=== PATIENT | female | born 1965 | race Caucasian/White ===

== ENCOUNTER 2022-05-15 17:53 | Inpatient (IN) | payer MEDICARE, MEDICAID, SELFPAY ==
--- NOTE | ~2022-05-15 | XR_ITS ---
EXAMINATION: XR LUMBOSACRAL SPINE CLINICAL INFORMATION: Inability to walk. Pain. COMPARISON: None TECHNIQUE: Three views of the lumbosacral spine. FINDINGS: There may be curvature of the lower lumbar sacral spine to the right. Bone alignment is otherwise normal. No fracture or dislocation is seen. There is evidence of multilevel degenerative spondylosis. There is mild degenerative disc disease at L3-L4. There is lower lumbar spine facet arthritis. XR/XR lumbar spine 2-3V IMPRESSION: Multilevel degenerative changes.
[2022-05-15] MEDS: Acetaminophen 325 MG TABLET 650 MG PO (20:11)
[2022-05-15] MEDS: traZODone HCL 50 MG TABLET PO (20:11)
[2022-05-15 22:16] LABS: Glucose, Whole Blood 234 mg/dL (60-115)
--- NOTE | 2022-05-15 23:05 | PC.ADMIT ---
Pt is a 57y/o woman admitted on CV from [facility] for attempted Suicide. Pt reports that she took 6 tabs each of Tylenol, Benadryl, and Dramamine. Pt reports her OD was intentional due to a buildup of life stresses. Pt is alert and oriented, VSS, Covid negative, Tox screen negative. Pt reports multiple chronic conditions that are causing her increasing pain and decreasing mobility. Pt reports that she wants to get some good coping skills and also get help in managing her pain. Currently pt is using a cane, new order for in-house walker given by Christal Davey. Pt presents with limited mobility. Pt observed to be tearful at times during assessment. Speech is normal with regular tone, rate and rhythm. Admission orders obtained.
[2022-05-16] MEDS: Acetaminophen 325 MG TABLET 650 MG PO ×3 (04:51→19:58)
[2022-05-16 07:41] LABS: Estimated Average Glucose 298 mg/dL
[2022-05-16 07:47] LABS: Alanine Aminotransferase 28 U/L (0-31); Albumin Level 3.8 g/dL (3.5-5.0); Alkaline Phosphatase 75 U/L (39-117); Anion Gap 18 (12-20); Aspartate Amino Transferase 52 U/L (5-31); Bilirubin Total 0.6 mg/dL (0.0-1.0); Blood Urea Nitrogen 37 mg/dL (9-16); Calcium 9.3 mg/dL (8.4-10.2); Carbon Dioxide 21 mmol/L (22-29); Chloride 101 mmol/L (96-108); Cholesterol 236 mg/dL; Estimated Glomerular Filt Rate 52; Glucose Fasting 270 mg/dL (60-99); HDL Cholesterol 32 mg/dL; LDL Cholesterol Calculated 151 mg/dl; Magnesium 2.3 mg/dL (1.6-2.6); Sodium 136 mmol/L (135-145); Total Protein 7.8 g/dL (6.5-8.0); Triglycerides 266 mg/dL
[2022-05-16 08:09] LABS: Free T4 (Free Thyroxine) 1.06 ng/dL (0.71-1.85); Thyroid Stimulating Hormone 0.84 uIU/mL (0.32-4.0)
[2022-05-16 09:37] LABS: Folate 8.2 ng/mL (> or = 4.0); Vitamin B12 528 pg/mL (200-900)
[2022-05-16 12:32] VITALS: BP 126/87; PULSE 89; TEMP 36.4; O2SAT 98
[2022-05-16] MEDS: clonazePAM 0.5 MG TABLET PO (14:56)
[2022-05-16] MEDS: Ibuprofen 400 MG TABLET PO ×2 (14:56→19:59)
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
[2022-05-16 18:00] VITALS: BP 130/83; PULSE 95; TEMP 36.6; O2SAT 93
[2022-05-17 06:00] VITALS: BP 148/80; PULSE 89; RESP 18; TEMP 36.2; O2SAT 98
[2022-05-17] MEDS: Escitalopram Oxalate 10 MG TABLET PO (10:09)
[2022-05-17] MEDS: Mineral Oil/Petrolatum,White 106 GM Tube 1 APPL TOPICAL ×2 (10:09→14:01)
[2022-05-17] MEDS: Multivitamin TABLET 1 TAB PO (10:10)
[2022-05-17] MEDS: Ibuprofen 400 MG TABLET PO ×2 (10:52→16:54)
[2022-05-17] MEDS: Acetaminophen 325 MG TABLET 650 MG PO (13:59)
[2022-05-17] MEDS: clonazePAM 0.5 MG TABLET PO (13:59)
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
--- NOTE | 2022-05-17 16:05 | HO.PSYCHPN ---
Subjective Subjective Date of Service: 05/17/22 Reason For Visit: anxiety disorder, recurrent episode, hoarding diso Subjective Notes: Conditional Voluntary Healthcare Proxy: No Guardianship: No Medical Problems Affecting Mental Status: Yes Interim History: Continues to settle with initial eval of multiple medical/psych issues. Reporting pain- Team discussed Gabapentin trial-discussed with pt who is wiling to do a full trial. Beginning to integrate in milieu. Mobility an issue. Room-mate is attentive to pt and she verbalized appreciation. Overall reports feeling better- I am heard here Medication Compliance: Yes Side effects from medications: No Attending Groups: Intermittent Review of Systems Acute medical concerns: No Medical Review of Systems: unchanged Mental Status Exam Mental Status Exam Patient Appearance: Fatigued Patient Orientation: Person, Place, Time and Situation Level of Consciousness: Alert Patient Behavior: Appropriate, Talkative, Cooperative, Anxious, Fatigued, Isolative and Good Eye Contact Mood Description: Depressed and Anxious Affect Description: Flat Patient Cognition Impaired: No Ability to Follow Directions: Good Speech Pattern: Spontaneous Speech Memory Description: Intact and Episodic Impaired Hallucinations: None Delusions: Not Present Perceptual Disturbances: Depersonalization and Derealization Thought Process: Intact, Rumination and Goal Oriented Thought Content: positive for Intact, positive for [place], positive for Perseveration and positive for Suicidal Ideation Depressive Symptoms: Increased Anxiety, Insomnia, Diff. Making Decisions, Muscle Tension, Difficulty Sleeping, Changes in Appetite, Muscle Pain, Loss of Int. in Activity, Feelings of Worthlessness, Significant Weight Gain, Isolating-Friends/Family, Unhappiness, Increased Fatigue, Thoughts of /Suicide, Unexplained Stomach Pain, Low Self Esteem, Loss of Energy, Difficulty Concentrating and Back Pain Judgement: Good Diagnostics Vital Signs (24Hr): Vital Signs - 24 hr 05/16/22 18:00 05/17/22 06:00 Temperature 98 F 97.2 F Pulse Rate 95 89 Respiratory Rate 18 Blood Pressure 130/83 148/80 H Pulse Oximetry 93 98 Oxygen Delivery Method Room Air Room Air Labs Results: 05/16/22 07:13 Labs: Laboratory Results - last 48 hr 05/15/22 05/16/22 05/16/22 22:12 07:13 07:13 Sodium 136 Potassium 4.0 Chloride 101 Carbon Dioxide 21 L Anion Gap 18 BUN 37 H Creatinine 1.09 Estim Creat Clear Calc TNP Estimated GFR 52 POC Glucose 234 H Fasting Glucose 270 H Estimat Average Glucose 298 Hemoglobin A1c % 12.0 Calcium 9.3 Magnesium 2.3 Total Bilirubin 0.6 AST 52 H ALT 28 Alkaline Phosphatase 75 Total Protein 7.8 Albumin 3.8 Triglycerides 266 Cholesterol 236 LDL Cholesterol, Calc 151 HDL Cholesterol 32 Vitamin B12 Folate TSH 0.84 Free T4 1.06 05/16/22 05/16/22 05/17/22 07:13 17:22 11:33 Sodium Potassium Chloride Carbon Dioxide Anion Gap BUN Creatinine Estim Creat Clear Calc Estimated GFR POC Glucose 254 H 340 H Fasting Glucose Estimat Average Glucose Hemoglobin A1c % Calcium Magnesium Total Bilirubin AST ALT Alkaline Phosphatase Total Protein Albumin Triglycerides Cholesterol LDL Cholesterol, Calc HDL Cholesterol Vitamin B12 528 Folate 8.2 TSH Free T4 Medications Medications Current Medications Acetaminophen (Acetaminophen 325 Mg Tablet) 650 mg PO Q6H PRN PRN Reason: Headache/Pain Mild Scale (1-3) Last Admin: 05/17/22 13:59 Dose: 650 mg Al Hydroxide/Mg Hydroxide (Magnesium Hydrox/Alum Hydrox 30 Ml Oral.Susp) 30 ml PO Q6H PRN PRN Reason: Heartburn/Nausea Clonazepam (Clonazepam 0.5 Mg Tablet) 0.5 mg PO BID PRN PRN Reason: Anxiety Last Admin: 05/17/22 13:59 Dose: 0.5 mg Dextrose (Dextrose 50 % 25 Gm/50 Ml Syringe) 25 gm IVPUSH Q15M PRN; Protocol PRN Reason: per Hypoglycemia Standing Ord. Escitalopram Oxalate (Escitalopram Oxalate 10 Mg Tablet) 10 mg PO DAILY [facility] Last Admin: 05/17/22 10:09 Dose: 10 mg Gabapentin (Gabapentin 100 Mg Capsule) 100 mg PO TID [facility] Glucose (Glucose Gel 15 Gm Gel..Gram.) 15 gm PO Q15M PRN; Protocol PRN Reason: per Hypoglycemia Standing Ord. Glyburide (Glyburide 2.5 Mg Tablet) 2.5 mg PO DAILY [facility] Hydroxyzine HCl (Hydroxyzine Hcl 25 Mg Tablet) 25 mg PO Q6H PRN PRN Reason: Anxiety Ibuprofen (Ibuprofen 400 Mg Tablet) 400 mg PO Q6H PRN PRN Reason: Pain, Mild (Pain Scale 1-3) Last Admin: 05/17/22 10:52 Dose: 400 mg Insulin Human Lispro (Insulin Lispro 100 Unit/Ml 3 Ml Vial) 0 unit SUBCUT QIDACHS [facility]; Protocol Stop: 05/18/22 13:53 Magnesium Hydroxide (Milk Of Magnesia 30 Ml Oral.Susp) 30 ml PO DAILY PRN PRN Reason: Constipation Multi-Ingred Cream/Lotion/Oil/Oint (Mineral Oil/Petrolatum,White 106 Gm Tube) 1 appl TOPICAL TID [facility]; Protocol Last Admin: 05/17/22 14:01 Dose: 1 appl Multivitamins/Vitamin C (Multivitamin Tablet) 1 tab PO DAILY [facility] Last Admin: 05/17/22 10:10 Dose: 1 tab Trazodone HCl (Trazodone Hcl 50 Mg Tablet) 50 mg PO BEDTIME PRN PRN Reason: Insomnia Last Admin: 05/15/22 20:11 Dose: 50 mg Allergies Allergies Allergy/AdvReac Type Severity Reaction Status Date / Time spironolactone Allergy Unknown Unknown Verified 05/15/22 18:06 bees Allergy Unknown Unknown Uncoded 05/15/22 18:06 metformin Allergy Unknown Unknown Uncoded 05/15/22 18:06 shellfish Allergy Unknown Unknown Uncoded 05/15/22 18:06 Assessment & Plan Assessment & Plan (1) PTSD (post-traumatic stress disorder): Status: Acute Code(s): F43.10 - Post-traumatic stress disorder, unspecified (2) Recurrent major depression: Status: Acute Code(s): F33.9 - Major depressive disorder, recurrent, unspecified Plan 05/17/22-Gabapentin trial. Continue current regime I spent minutes with the patient and/or on the patient floor today, greater than?50% of which was spent counseling/coordinating care. Patient educated on: medication risk/benefits and therapeutic strategies Informed Consent: understands and further education needed Reason for contiued inpatient stay Substantial Risk for: med/psych decompensation
[2022-05-17] MEDS: glyBURIDE 2.5 MG TABLET PO (16:54)
[2022-05-17] MEDS: Loperamide HCl 2 MG CAPSULE 4 MG PO (16:58)
[2022-05-17] MEDS: Insulin Lispro 100 UNIT/ML 3 ML VIAL SUBCUT ×2 (17:56→21:27)
[2022-05-17 18:00] VITALS: BP 180/88; PULSE 74; RESP 18; TEMP 36.8; O2SAT 96
[2022-05-17] MEDS: Gabapentin 100 MG CAPSULE PO (21:24)
[2022-05-18 06:00] VITALS: BP 180/103; PULSE 89; RESP 18; TEMP 36.4; O2SAT 98
[2022-05-18 06:37] LABS: Estimated Average Glucose 298 mg/dL
[2022-05-18 08:19] LABS: Glucose, Whole Blood 152 mg/dL (60-115)
[2022-05-18] MEDS: Ibuprofen 400 MG TABLET PO (08:24)
[2022-05-18] MEDS: Multivitamin TABLET 1 TAB PO (08:25)
[2022-05-18] MEDS: Escitalopram Oxalate 10 MG TABLET PO (08:25)
[2022-05-18] MEDS: Mineral Oil/Petrolatum,White 106 GM Tube 1 APPL TOPICAL (08:25)
[2022-05-18] MEDS: glyBURIDE 2.5 MG TABLET PO (08:25)
[2022-05-18] MEDS: Gabapentin 100 MG CAPSULE PO ×2 (08:25→14:04)
[2022-05-18] MEDS: Insulin Lispro 100 UNIT/ML 3 ML VIAL SUBCUT ×2 (08:26→13:00)
[2022-05-18 10:34] VITALS: BP 179/85; PULSE 92; RESP 18; TEMP 36.3; O2SAT 95
[2022-05-18 11:21] LABS: Glucose, Whole Blood 261 mg/dL (60-115)
[2022-05-18 12:58] LABS: Glucose, Whole Blood 279 mg/dL (60-115)
[2022-05-18 17:50] LABS: Glucose, Whole Blood 176 mg/dL (60-115)
[2022-05-18 18:00] VITALS: BP 184/91; PULSE 92; RESP 18; TEMP 37.1; O2SAT 96
--- NOTE | 2022-05-18 18:55 | HO.PSYCHPN ---
Subjective Subjective Date of Service: 05/18/22 Reason For Visit: anxiety disorder, recurrent episode, hoarding diso Subjective Notes: Conditional Voluntary Healthcare Proxy: No Guardianship: No Medical Problems Affecting Mental Status: No Interim History: Tolerated Gabapentin. Ready to increase dosing Discussed need for a medical bed to provide needed support. I feel better emotionally. Issues are being addressed. Medication Compliance: Yes Side effects from medications: No Attending Groups: Intermittent Review of Systems Acute medical concerns: No Medical Review of Systems: unchanged Mental Status Exam Mental Status Exam Patient Appearance: Fatigued Patient Orientation: Person, Place, Time and Situation Level of Consciousness: Alert Patient Behavior: Appropriate, Talkative, Cooperative, Anxious, Fatigued, Isolative and Good Eye Contact Mood Description: Depressed and Anxious Affect Description: Flat Patient Cognition Impaired: No Ability to Follow Directions: Good Speech Pattern: Spontaneous Speech Memory Description: Intact and Episodic Impaired Hallucinations: None Delusions: Not Present Perceptual Disturbances: Depersonalization and Derealization Thought Process: Intact, Rumination and Goal Oriented Thought Content: positive for Intact, positive for [place], positive for Perseveration and positive for Suicidal Ideation Depressive Symptoms: Increased Anxiety, Insomnia, Diff. Making Decisions, Muscle Tension, Difficulty Sleeping, Changes in Appetite, Muscle Pain, Loss of Int. in Activity, Feelings of Worthlessness, Significant Weight Gain, Isolating-Friends/Family, Unhappiness, Increased Fatigue, Thoughts of /Suicide, Unexplained Stomach Pain, Low Self Esteem, Loss of Energy, Difficulty Concentrating and Back Pain Judgement: Good Diagnostics Vital Signs (24Hr): Vital Signs - 24 hr 05/18/22 06:00 05/18/22 10:34 Temperature 97.5 F 97.4 F Pulse Rate 89 92 Respiratory Rate 18 18 Blood Pressure 180/103 H 179/85 H Pulse Oximetry 98 95 Oxygen Delivery Method Room Air Room Air Labs Results: 05/16/22 07:13 Labs: Laboratory Results - last 48 hr 05/17/22 05/17/22 05/17/22 11:33 14:57 16:57 POC Glucose 340 H 266 H Estimat Average Glucose 298 Hemoglobin A1c % 12.0 05/17/22 05/18/22 05/18/22 20:29 08:14 11:16 POC Glucose 246 H 152 H 261 H Estimat Average Glucose Hemoglobin A1c % 05/18/22 05/18/22 12:52 17:46 POC Glucose 279 H 176 H Estimat Average Glucose Hemoglobin A1c % Medications Medications Current Medications Acetaminophen (Acetaminophen 325 Mg Tablet) 650 mg PO Q6H PRN PRN Reason: Headache/Pain Mild Scale (1-3) Last Admin: 05/17/22 13:59 Dose: 650 mg Al Hydroxide/Mg Hydroxide (Magnesium Hydrox/Alum Hydrox 30 Ml Oral.Susp) 30 ml PO Q6H PRN PRN Reason: Heartburn/Nausea Clonazepam (Clonazepam 0.5 Mg Tablet) 0.5 mg PO BID PRN PRN Reason: Anxiety Last Admin: 05/17/22 13:59 Dose: 0.5 mg Dextrose (Dextrose 50 % 25 Gm/50 Ml Syringe) 25 gm IVPUSH Q15M PRN; Protocol PRN Reason: per Hypoglycemia Standing Ord. Escitalopram Oxalate (Escitalopram Oxalate 10 Mg Tablet) 10 mg PO DAILY [facility] Last Admin: 05/18/22 08:25 Dose: 10 mg Gabapentin (Gabapentin 300 Mg Capsule) 300 mg PO TID [facility] Glucose (Glucose Gel 15 Gm Gel..Gram.) 15 gm PO Q15M PRN; Protocol PRN Reason: per Hypoglycemia Standing Ord. Glyburide (Glyburide 2.5 Mg Tablet) 2.5 mg PO DAILY [facility] Last Admin: 05/18/22 08:25 Dose: 2.5 mg Hydroxyzine HCl (Hydroxyzine Hcl 25 Mg Tablet) 25 mg PO Q6H PRN PRN Reason: Anxiety Ibuprofen (Ibuprofen 400 Mg Tablet) 400 mg PO Q6H PRN PRN Reason: Pain, Mild (Pain Scale 1-3) Last Admin: 05/18/22 08:24 Dose: 400 mg Loperamide HCl (Loperamide Hcl 2 Mg Capsule) 4 mg PO Q6H PRN PRN Reason: loose stools Last Admin: 05/17/22 16:58 Dose: 4 mg Magnesium Hydroxide (Milk Of Magnesia 30 Ml Oral.Susp) 30 ml PO DAILY PRN PRN Reason: Constipation Multi-Ingred Cream/Lotion/Oil/Oint (Mineral Oil/Petrolatum,White 106 Gm Tube) 1 appl TOPICAL TID [facility]; Protocol Last Admin: 05/18/22 14:06 Dose: Not Given Multivitamins/Vitamin C (Multivitamin Tablet) 1 tab PO DAILY [facility] Last Admin: 05/18/22 08:25 Dose: 1 tab Trazodone HCl (Trazodone Hcl 50 Mg Tablet) 50 mg PO BEDTIME PRN PRN Reason: Insomnia Last Admin: 05/15/22 20:11 Dose: 50 mg Allergies Allergies Allergy/AdvReac Type Severity Reaction Status Date / Time spironolactone Allergy Unknown Unknown Verified 05/15/22 18:06 bees Allergy Unknown Unknown Uncoded 05/15/22 18:06 metformin Allergy Unknown Unknown Uncoded 05/15/22 18:06 shellfish Allergy Unknown Unknown Uncoded 05/15/22 18:06 Assessment & Plan Assessment & Plan (1) PTSD (post-traumatic stress disorder): Status: Acute Code(s): F43.10 - Post-traumatic stress disorder, unspecified (2) Recurrent major depression: Status: Acute Code(s): F33.9 - Major depressive disorder, recurrent, unspecified Plan 57 yo female s/p overdose on #6 Tylenol, Benadryl, Dramamine. Hx of depression, anxiety, cerebral palsy, diabetes and multiple medical issues that have been untreated. Pt reports hoarding sx, stating her apartment is too cluttered to ambulate safely. Currently, pt is experiencing pain and is using a walker, wheelchair and is struggling to ambulate. Plan: Lexapro 10 mg daily Klonopin 0.5 mg bid prn Ibuprofen prn Eucerin cream to feet Five minute checks-pt using a wheelchair Pt may require a medical bed Request for Varun DOYLE to resend medical clearance paperwork Hospitalist scheduled to see for eval-DM with metformin allergy, ambulation symptoms Referall back to PCP for GI, PEDIATRIC ORTHODONTIST, Dermatology, Respiratory, Rheumatology, Neurology alliances PT consult POC 05/18/22 Increase Gabapentin to 300 mg tid I spent minutes with the patient and/or on the patient floor today, greater than?50% of which was spent counseling/coordinating care. Reason for contiued inpatient stay Substantial Risk for: inability to function and med/psych decompensation
[2022-05-18] MEDS: Gabapentin 300 MG CAPSULE PO (21:19)
[2022-05-18 21:28] LABS: Glucose, Whole Blood 238 mg/dL (60-115)
[2022-05-19 07:56] LABS: Glucose, Whole Blood 157 mg/dL (60-115)
[2022-05-19] MEDS: Escitalopram Oxalate 10 MG TABLET PO (08:21)
[2022-05-19] MEDS: glyBURIDE 2.5 MG TABLET PO (08:21)
[2022-05-19] MEDS: Multivitamin TABLET 1 TAB PO (08:21)
[2022-05-19] MEDS: Gabapentin 300 MG CAPSULE PO ×2 (08:21→14:38)
[2022-05-19 08:25] VITALS: BP 174/93; PULSE 79; RESP 16; TEMP 36.4; O2SAT 98
[2022-05-19] MEDS: Ibuprofen 400 MG TABLET PO (10:10)
[2022-05-19] MEDS: Acetaminophen 325 MG TABLET 650 MG PO (10:10)
[2022-05-19 14:38] LABS: Glucose, Whole Blood 273 mg/dL (60-115)
[2022-05-19 16:30] VITALS: BP 169/87; PULSE 78; TEMP 36.4
--- NOTE | 2022-05-19 17:14 | P.PNPSI_ITS ---
Subjective Subjective Date of Service: 05/19/22 Reason For Visit: anxiety disorder, recurrent episode, hoarding diso Subjective Notes: Matias Warning and Conditional Voluntary Interim History: I spoke with pt's team and pt this evening. She says Its been a good day, my pain hasn?t been as bad, i'm able to do a little bit of walking in the [place] with my walker. Thinks the gabapentin has helped with her pain but it could be upped still, noticed she had a lot of pain in her tailbone. Has been more behaviorally active, feels more awake here than at home. Feels safe, denies SI/SIB. Medication Compliance: Yes Side effects from medications: No Attending Groups: Yes Review of Systems Acute medical concerns: No Medical Review of Systems: unchanged Mental Status Exam Mental Status Exam Narrative: Patient Appearance: Fatigued Patient Orientation: Person, Place, Time and Situation Level of Consciousness: Alert Patient Behavior: Appropriate, Talkative, Cooperative, Anxious, Fatigued, Isolative and Good Eye Contact Mood Description: Depressed and Anxious Affect Description: Flat Patient Cognition Impaired: No Ability to Follow Directions: Good Speech Pattern: Spontaneous Speech Memory Description: Intact and Episodic Impaired Hallucinations: None Delusions: Not Present Perceptual Disturbances: Depersonalization and Derealization Thought Process: Intact, Rumination and Goal Oriented Thought Content: positive for Intact, positive for [place], positive for Perseveration and positive for Suicidal Ideation Depressive Symptoms: Increased Anxiety, Insomnia, Diff. Making Decisions, Muscle Tension, Difficulty Sleeping, Changes in Appetite, Muscle Pain, Loss of Int. in Activity, Feelings of Worthlessness, Significant Weight Gain, Isolating- Friends/Family, Unhappiness, Increased Fatigue, Thoughts of /Suicide, Unexplained Stomach Pain, Low Self Esteem, Loss of Energy, Difficulty Concentrating and Back Pain Judgement: Good Diagnostics Vital Signs (24Hr): Vital Signs - 24 hr 05/18/22 18:00 05/19/22 08:25 Temperature 98.8 F 97.6 F Pulse Rate 92 79 Respiratory Rate 18 16 Blood Pressure 184/91 H 174/93 H Pulse Oximetry 96 98 Oxygen Delivery Method Room Air Room Air Labs Results: 05/16/22 07:13 Labs: Laboratory Results - last 48 hr 05/17/22 05/17/22 05/18/22 14:57 20:29 08:14 POC Glucose 246 H 152 H Estimat Average Glucose 298 Hemoglobin A1c % 12.0 05/18/22 05/18/22 05/18/22 11:16 12:52 17:46 POC Glucose 261 H 279 H 176 H Estimat Average Glucose Hemoglobin A1c % 05/18/22 05/19/22 05/19/22 21:25 07:51 14:34 POC Glucose 238 H 157 H 273 H Estimat Average Glucose Hemoglobin A1c % Medications Medications Current Medications Acetaminophen (Acetaminophen 325 Mg Tablet) 650 mg PO Q6H PRN PRN Reason: Headache/Pain Mild Scale (1-3) Last Admin: 05/19/22 10:10 Dose: 650 mg Al Hydroxide/Mg Hydroxide (Magnesium Hydrox/Alum Hydrox 30 Ml Oral.Susp) 30 ml PO Q6H PRN PRN Reason: Heartburn/Nausea Clonazepam (Clonazepam 0.5 Mg Tablet) 0.5 mg PO BID PRN PRN Reason: Anxiety Last Admin: 05/17/22 13:59 Dose: 0.5 mg Dextrose (Dextrose 50 % 25 Gm/50 Ml Syringe) 25 gm IVPUSH Q15M PRN; Protocol PRN Reason: per Hypoglycemia Standing Ord. Escitalopram Oxalate (Escitalopram Oxalate 10 Mg Tablet) 10 mg PO DAILY [facility] Last Admin: 05/19/22 08:21 Dose: 10 mg Gabapentin (Gabapentin 300 Mg Capsule) 300 mg PO TID [facility] Last Admin: 05/19/22 14:38 Dose: 300 mg Glucose (Glucose Gel 15 Gm Gel..Gram.) 15 gm PO Q15M PRN; Protocol PRN Reason: per Hypoglycemia Standing Ord. Glyburide (Glyburide 2.5 Mg Tablet) 2.5 mg PO DAILY [facility] Last Admin: 05/19/22 08:21 Dose: 2.5 mg Hydroxyzine HCl (Hydroxyzine Hcl 25 Mg Tablet) 25 mg PO Q6H PRN PRN Reason: Anxiety Ibuprofen (Ibuprofen 400 Mg Tablet) 400 mg PO Q6H PRN PRN Reason: Pain, Mild (Pain Scale 1-3) Last Admin: 05/19/22 10:10 Dose: 400 mg Loperamide HCl (Loperamide Hcl 2 Mg Capsule) 4 mg PO Q6H PRN PRN Reason: loose stools Last Admin: 05/17/22 16:58 Dose: 4 mg Magnesium Hydroxide (Milk Of Magnesia 30 Ml Oral.Susp) 30 ml PO DAILY PRN PRN Reason: Constipation Multi-Ingred Cream/Lotion/Oil/Oint (Mineral Oil/Petrolatum,White 106 Gm Tube) 1 appl TOPICAL TID [facility]; Protocol Last Admin: 05/19/22 16:40 Dose: Not Given Multivitamins/Vitamin C (Multivitamin Tablet) 1 tab PO DAILY [facility] Last Admin: 05/19/22 08:21 Dose: 1 tab Trazodone HCl (Trazodone Hcl 50 Mg Tablet) 50 mg PO BEDTIME PRN PRN Reason: Insomnia Last Admin: 05/15/22 20:11 Dose: 50 mg Allergies Allergies Allergy/AdvReac Type Severity Reaction Status Date / Time spironolactone Allergy Unknown Unknown Verified 05/15/22 18:06 bees Allergy Unknown Unknown Uncoded 05/15/22 18:06 metformin Allergy Unknown Unknown Uncoded 05/15/22 18:06 shellfish Allergy Unknown Unknown Uncoded 05/15/22 18:06 Assessment & Plan Assessment & Plan (1) Recurrent major depression: Status: Acute Code(s): F33.9 - Major depressive disorder, recurrent, unspecified Plan 57 yo female s/p overdose on #6 Tylenol, Benadryl, Dramamine. Hx of depression, anxiety, cerebral palsy, diabetes and multiple medical issues that have been untreated. Pt reports hoarding sx, stating her apartment is too cluttered to ambulate saf adrien. Currently, pt is experiencing pain and is using a walker, wheelchair and is struggling to ambulate. Plan: Lexapro 10 mg daily Klonopin 0.5 mg bid prn Ibuprofen prn Eucerin cream to feet Five minute checks-pt using a wheelchair Pt may require a medical bed Request for Varun DOYLE to resend medical clearance paperwork Hospitalist scheduled to see for eval-DM with metformin allergy, ambulation symptoms Referall back to PCP for GI, ASSOCIATE PROFESSOR OF SOCIOLOGY, Dermatology, Respiratory, Rheumatology, Neurology alliances PT consult POC 05/19: will increase gabapentin to 400 mg TID I spent minutes with the patient and/or on the patient floor today, greater than?50% of which was spent counseling/coordinating care. Patient educated on: diagnosis, medication risk/benefits and therapeutic strategies Reason for contiued inpatient stay Substantial Risk for: med/psych decompensation
[2022-05-19 17:46] LABS: Glucose, Whole Blood 176 mg/dL (60-115)
[2022-05-19] MEDS: traZODone HCL 50 MG TABLET PO (21:31)
[2022-05-19] MEDS: Gabapentin 400 MG CAPSULE PO (21:32)
[2022-05-20 01:29] LABS: Glucose, Whole Blood 244 mg/dL (60-115)
[2022-05-20 07:58] LABS: Glucose, Whole Blood 136 mg/dL (60-115)
[2022-05-20] MEDS: Escitalopram Oxalate 10 MG TABLET PO (08:23)
[2022-05-20] MEDS: Multivitamin TABLET 1 TAB PO (08:23)
[2022-05-20] MEDS: glyBURIDE 2.5 MG TABLET PO (08:23)
[2022-05-20] MEDS: Gabapentin 400 MG CAPSULE PO ×3 (08:24→21:43)
[2022-05-20 08:54] VITALS: BP 181/92; PULSE 83; RESP 17; O2SAT 98
[2022-05-20] MEDS: lisinopriL 20 MG TABLET PO (09:36)
[2022-05-20 10:38] VITALS: BP 181/92; PULSE 83; O2SAT 98
[2022-05-20 11:41] LABS: Glucose, Whole Blood 271 mg/dL (60-115)
[2022-05-20 17:10] LABS: Glucose, Whole Blood 178 mg/dL (60-115)
--- NOTE | 2022-05-20 17:26 | HO.PSYCHPN ---
Subjective Subjective Date of Service: 05/20/22 Reason For Visit: anxiety disorder, recurrent episode, hoarding diso Subjective Notes: Conditional Voluntary Healthcare Proxy: No Guardianship: No Medical Problems Affecting Mental Status: No Interim History: Tearful. Reports she is unable to stand, walk, provide for her own ADL's. Reports this decline began in the ER at [facility] and has become more debilitating while in hospital. I don't think I am depressed. I am upset as I cannot take care of myself. Reports an increase in pain, unsure if this is stress or sciatic pain. Reports injury to achilles tendon age 18 with improper healing- my knees bend inward and my foot outward . It healed out of alignment. Pt discussed need for ongoing care-discussed [facility] which she [facility]. Discussed the condition of her home. She will call her landlord on 05/21 to discuss. She reports she will need someone to come in and slate picker trash, plastic and aluminum cans. She may need help scheduling this. Medication Compliance: Yes Side effects from medications: No Attending Groups: Yes Review of Systems Acute medical concerns: No Medical Review of Systems: unchanged Mental Status Exam Mental Status Exam Patient Appearance: Appropriate Patient Orientation: Person, Place, Time and Situation Level of Consciousness: Alert Patient Behavior: Talkative and Good Eye Contact Mood Description: Anxious and Sad Affect Description: Flat Patient Cognition Impaired: No Ability to Follow Directions: Good Speech Pattern: Spontaneous Speech Memory Description: Intact Hallucinations: None Delusions: Not Present Thought Process: Intact and Goal Oriented Thought Content: positive for Goal Oriented Depressive Symptoms: Increased Anxiety and Thoughts of /Suicide (denies) Judgement: Good Diagnostics Vital Signs (24Hr): Vital Signs - 24 hr 05/20/22 08:54 05/20/22 10:38 Pulse Rate 83 83 Respiratory Rate 17 Blood Pressure 181/92 H 181/92 H Pulse Oximetry 98 98 Labs Results: 05/16/22 07:13 Labs: Laboratory Results - last 48 hr 05/18/22 05/18/22 05/19/22 17:46 21:25 07:51 POC Glucose 176 H 238 H 157 H 05/19/22 05/19/22 05/19/22 14:34 17:33 21:39 POC Glucose 273 H 176 H 244 H 05/20/22 05/20/22 05/20/22 07:53 11:32 17:04 POC Glucose 136 H 271 H 178 H Medications Medications Current Medications Acetaminophen (Acetaminophen 325 Mg Tablet) 650 mg PO Q6H PRN PRN Reason: Headache/Pain Mild Scale (1-3) Last Admin: 05/19/22 10:10 Dose: 650 mg Al Hydroxide/Mg Hydroxide (Magnesium Hydrox/Alum Hydrox 30 Ml Oral.Susp) 30 ml PO Q6H PRN PRN Reason: Heartburn/Nausea Clonazepam (Clonazepam 0.5 Mg Tablet) 0.5 mg PO BID PRN PRN Reason: Anxiety Last Admin: 05/17/22 13:59 Dose: 0.5 mg Dextrose (Dextrose 50 % 25 Gm/50 Ml Syringe) 25 gm IVPUSH Q15M PRN; Protocol PRN Reason: per Hypoglycemia Standing Ord. Escitalopram Oxalate (Escitalopram Oxalate 10 Mg Tablet) 10 mg PO DAILY [facility] Last Admin: 05/20/22 08:23 Dose: 10 mg Gabapentin (Gabapentin 400 Mg Capsule) 400 mg PO TID [facility] Last Admin: 05/20/22 14:35 Dose: 400 mg Glucose (Glucose Gel 15 Gm Gel..Gram.) 15 gm PO Q15M PRN; Protocol PRN Reason: per Hypoglycemia Standing Ord. Glyburide (Glyburide 2.5 Mg Tablet) 2.5 mg PO DAILY [facility] Last Admin: 05/20/22 08:23 Dose: 2.5 mg Hydroxyzine HCl (Hydroxyzine Hcl 25 Mg Tablet) 25 mg PO Q6H PRN PRN Reason: Anxiety Ibuprofen (Ibuprofen 400 Mg Tablet) 400 mg PO Q6H PRN PRN Reason: Pain, Mild (Pain Scale 1-3) Last Admin: 05/19/22 10:10 Dose: 400 mg Lisinopril (Lisinopril 20 Mg Tablet) 20 mg PO DAILY [facility]; Protocol Loperamide HCl (Loperamide Hcl 2 Mg Capsule) 4 mg PO Q6H PRN PRN Reason: loose stools Last Admin: 05/17/22 16:58 Dose: 4 mg Magnesium Hydroxide (Milk Of Magnesia 30 Ml Oral.Susp) 30 ml PO DAILY PRN PRN Reason: Constipation Multi-Ingred Cream/Lotion/Oil/Oint (Mineral Oil/Petrolatum,White 106 Gm Tube) 1 appl TOPICAL TID [facility]; Protocol Last Admin: 05/20/22 14:36 Dose: Not Given Multivitamins/Vitamin C (Multivitamin Tablet) 1 tab PO DAILY [facility] Last Admin: 05/20/22 08:23 Dose: 1 tab Trazodone HCl (Trazodone Hcl 50 Mg Tablet) 50 mg PO BEDTIME PRN PRN Reason: Insomnia Last Admin: 05/19/22 21:31 Dose: 50 mg Allergies Allergies Allergy/AdvReac Type Severity Reaction Status Date / Time spironolactone Allergy Unknown Unknown Verified 05/15/22 18:06 bees Allergy Unknown Unknown Uncoded 05/15/22 18:06 metformin Allergy Unknown Unknown Uncoded 05/15/22 18:06 shellfish Allergy Unknown Unknown Uncoded 05/15/22 18:06 Assessment & Plan Assessment & Plan (1) Recurrent major depression: Status: Acute Code(s): F33.9 - Major depressive disorder, recurrent, unspecified Plan 57 yo female s/p overdose on #6 Tylenol, Benadryl, Dramamine. Hx of depression, anxiety, cerebral palsy, diabetes and multiple medical issues that have been untreated. Pt reports hoarding sx, stating her apartment is too cluttered to ambulate safely. Currently, pt is experiencing pain and is using a walker, wheelchair and is struggling to ambulate. Plan: Lexapro 10 mg daily Klonopin 0.5 mg bid prn Ibuprofen prn Eucerin cream to feet Five minute checks-pt using a wheelchair Pt may require a medical bed Request for Varun DOYLE to resend medical clearance paperwork Hospitalist scheduled to see for eval-DM with metformin allergy, ambulation symptoms Referall back to PCP for GI, RADIOLOGIST DIAGNOSTIC, Dermatology, Respiratory, Rheumatology, Neurology alliances PT consult POC 05/19: will increase gabapentin to 400 mg TID 05/20/22- LS Spine, Discussed referral to SNF with team. I spent minutes with the patient and/or on the patient floor today, greater than?50% of which was spent counseling/coordinating care. Patient educated on: therapeutic strategies and medical condition Informed Consent: understands and further education needed Reason for contiued inpatient stay Substantial Risk for: med/psych decompensation
[2022-05-20 18:00] VITALS: BP 144/85; PULSE 92; RESP 18; TEMP 36.6; O2SAT 97
[2022-05-20] MEDS: traZODone HCL 50 MG TABLET PO (21:43)
[2022-05-21 08:02] LABS: Glucose, Whole Blood 137 mg/dL (60-115)
[2022-05-21 09:00] VITALS: BP 133/65; PULSE 102; RESP 18; TEMP 36.5; O2SAT 96
[2022-05-21] MEDS: Escitalopram Oxalate 10 MG TABLET PO (09:20)
[2022-05-21] MEDS: lisinopriL 20 MG TABLET PO (09:20)
[2022-05-21] MEDS: Gabapentin 400 MG CAPSULE PO ×3 (09:20→20:42)
[2022-05-21] MEDS: glyBURIDE 2.5 MG TABLET PO (09:20)
[2022-05-21] MEDS: Multivitamin TABLET 1 TAB PO (09:21)
[2022-05-21 12:19] LABS: Glucose, Whole Blood 221 mg/dL (60-115)
--- NOTE | 2022-05-21 13:53 | P.PNPSI_ITS ---
Subjective Subjective Date of Service: 05/21/22 Reason For Visit: anxiety disorder, recurrent episode, hoarding diso Subjective Notes: Conditional Voluntary Healthcare Proxy: No Guardianship: No Medical Problems Affecting Mental Status: No Interim History: LS Spine 05/20-multilevel degenerative spondylosis, mild degenerative disc disease L3-4, lower lumbar spine facet arthritis. Pt walking today with the walker, in groups for most of the day, napping at the end of the day. PT eval ordered who recommended STR when discharged, wheel chair department chairperson. Pt reports depressive and anxious sx are improved due to team addressing her issues. Pain is the issue today-tolerating Gabapentin. Medication Compliance: Yes Side effects from medications: No Attending Groups: Yes Review of Systems Acute medical concerns: No Medical Review of Systems: unchanged Mental Status Exam Mental Status Exam Patient Appearance: Appropriate Patient Orientation: Person, Place, Time and Situation Level of Consciousness: Alert Patient Behavior: Talkative and Good Eye Contact Mood Description: Anxious and Sad Affect Description: Flat Patient Cognition Impaired: No Ability to Follow Directions: Good Speech Pattern: Spontaneous Speech Memory Description: Intact Hallucinations: None Delusions: Not Present Thought Process: Intact and Goal Oriented Thought Content: positive for Goal Oriented Depressive Symptoms: Increased Anxiety and Thoughts of /Suicide (denies) Judgement: Good Diagnostics Vital Signs (24Hr): Vital Signs - 24 hr 05/20/22 18:00 05/21/22 09:00 Temperature 98 F 97.7 F Pulse Rate 92 102 H Respiratory Rate 18 18 Blood Pressure 144/85 H 133/65 Pulse Oximetry 97 96 Oxygen Delivery Method Room Air Room Air Labs Results: 05/16/22 07:13 Labs: Laboratory Results - last 48 hr 05/19/22 05/19/22 05/19/22 14:34 17:33 21:39 POC Glucose 273 H 176 H 244 H 05/20/22 05/20/22 05/20/22 07:53 11:32 17:04 POC Glucose 136 H 271 H 178 H 05/21/22 05/21/22 07:58 12:14 POC Glucose 137 H 221 H Medications Medications Current Medications Acetaminophen (Acetaminophen 325 Mg Tablet) 650 mg PO Q6H PRN PRN Reason: Headache/Pain Mild Scale (1-3) Last Admin: 05/19/22 10:10 Dose: 650 mg Al Hydroxide/Mg Hydroxide (Magnesium Hydrox/Alum Hydrox 30 Ml Oral.Susp) 30 ml PO Q6H PRN PRN Reason: Heartburn/Nausea Clonazepam (Clonazepam 0.5 Mg Tablet) 0.5 mg PO BID PRN PRN Reason: Anxiety Last Admin: 05/17/22 13:59 Dose: 0.5 mg Dextrose (Dextrose 50 % 25 Gm/50 Ml Syringe) 25 gm IVPUSH Q15M PRN; Protocol PRN Reason: per Hypoglycemia Standing Ord. Escitalopram Oxalate (Escitalopram Oxalate 10 Mg Tablet) 10 mg PO DAILY [facility] Last Admin: 05/21/22 09:20 Dose: 10 mg Gabapentin (Gabapentin 400 Mg Capsule) 400 mg PO TID [facility] Last Admin: 05/21/22 09:20 Dose: 400 mg Glucose (Glucose Gel 15 Gm Gel..Gram.) 15 gm PO Q15M PRN; Protocol PRN Reason: per Hypoglycemia Standing Ord. Glyburide (Glyburide 2.5 Mg Tablet) 2.5 mg PO DAILY [facility] Last Admin: 05/21/22 09:20 Dose: 2.5 mg Hydroxyzine HCl (Hydroxyzine Hcl 25 Mg Tablet) 25 mg PO Q6H PRN PRN Reason: Anxiety Ibuprofen (Ibuprofen 400 Mg Tablet) 400 mg PO Q6H PRN PRN Reason: Pain, Mild (Pain Scale 1-3) Last Admin: 05/19/22 10:10 Dose: 400 mg Lisinopril (Lisinopril 20 Mg Tablet) 20 mg PO DAILY [facility]; Protocol Last Admin: 05/21/22 09:20 Dose: 20 mg Loperamide HCl (Loperamide Hcl 2 Mg Capsule) 4 mg PO Q6H PRN PRN Reason: loose stools Last Admin: 05/17/22 16:58 Dose: 4 mg Magnesium Hydroxide (Milk Of Magnesia 30 Ml Oral.Susp) 30 ml PO DAILY PRN PRN Reason: Constipation Multi-Ingred Cream/Lotion/Oil/Oint (Mineral Oil/Petrolatum,White 106 Gm Tube) 1 appl TOPICAL TID [facility]; Protocol Last Admin: 05/21/22 09:21 Dose: Not Given Multivitamins/Vitamin C (Multivitamin Tablet) 1 tab PO DAILY [facility] Last Admin: 05/21/22 09:21 Dose: 1 tab Simethicone (Simethicone 80 Mg Tab.Chew) 80 mg PO QIDWMHS PRN PRN Reason: gas relief Trazodone HCl (Trazodone Hcl 50 Mg Tablet) 50 mg PO BEDTIME PRN PRN Reason: Insomnia Last Admin: 05/20/22 21:43 Dose: 50 mg Allergies Allergies Allergy/AdvReac Type Severity Reaction Status Date / Time spironolactone Allergy Unknown Unknown Verified 05/15/22 18:06 bees Allergy Unknown Unknown Uncoded 05/15/22 18:06 metformin Allergy Unknown Unknown Uncoded 05/15/22 18:06 shellfish Allergy Unknown Unknown Uncoded 05/15/22 18:06 Assessment & Plan Assessment & Plan (1) Recurrent major depression: Status: Acute Code(s): F33.9 - Major depressive disorder, recurrent, unspecified Plan 57 yo female s/p overdose on #6 Tylenol, Benadryl, Dramamine. Hx of depression, anxiety, cerebral palsy, diabetes and multiple medical issues that have been untreated. Pt reports hoarding sx, stating her apartment is too cluttered to ambulate safely. Currently, pt is experiencing pain and is using a walker, wheelchair and is struggling to ambulate. Plan: Lexapro 10 mg daily Klonopin 0.5 mg bid prn Ibuprofen prn Eucerin cream to feet Five minute checks-pt using a wheelchair Pt may require a medical bed Request for Varun DOYLE to resend medical clearance paperwork Hospitalist scheduled to see for eval-DM with metformin allergy, ambulation symptoms Referall back to PCP for GI, TAX COMPLIANCE OFFICER, Dermatology, Respiratory, Rheumatology, Neurology alliances PT consult POC 05/19: will increase gabapentin to 400 mg TID 05/20/22- [facility] Sp[facility], Discussed referral to SNF with team. 05/21/22- Discharge planning I spent minutes with the patient and/or on the patient floor today, greater than?50% of which was spent counseling/coordinating care. Patient educated on: therapeutic strategies Informed Consent: understands and further education needed Reason for contiued inpatient stay Substantial Risk for: med/psych decompensation
[2022-05-21 18:00] VITALS: BP 185/92; PULSE 91; RESP 18; TEMP 36.3; O2SAT 96
[2022-05-21] MEDS: traZODone HCL 50 MG TABLET PO (20:42)
[2022-05-21] MEDS: Simethicone 80 MG TAB.CHEW PO (20:45)
[2022-05-22 06:00] VITALS: BP 159/86; PULSE 88; RESP 16; TEMP 36.3; O2SAT 97
[2022-05-22] MEDS: Multivitamin TABLET 1 TAB PO (09:16)
[2022-05-22] MEDS: glyBURIDE 2.5 MG TABLET PO (09:16)
[2022-05-22] MEDS: lisinopriL 20 MG TABLET PO (09:16)
[2022-05-22] MEDS: Gabapentin 400 MG CAPSULE PO (09:16)
[2022-05-22] MEDS: Escitalopram Oxalate 10 MG TABLET PO (09:16)
[2022-05-22] MEDS: Mineral Oil/Petrolatum,White 106 GM Tube 1 APPL TOPICAL ×3 (09:17→19:55)
[2022-05-22 09:55] VITALS: BP 159/86; PULSE 88; O2SAT 97
--- NOTE | 2022-05-22 14:41 | HO.PSYCHPN ---
Subjective Subjective Date of Service: 05/22/22 Reason For Visit: anxiety disorder, recurrent episode, hoarding diso Subjective Notes: Conditional Voluntary Healthcare Proxy: No Guardianship: No Medical Problems Affecting Mental Status: No Interim History: Case discussion with residential services director Sara Mantilla [phone]. Sara has been working with pt on her apartment issues. Sara reports pt is NOT hoarding. She reports pt has a mobility problem and is not able to take out her trash, thus there is a great deal of trash in the apartment. Currently they can find no free services to assist, however she suggests a call to [employer] for help with [employer], [facility], private hire (suggests [employer] at [phone]). This was an issue for pt 2 years ago. Their company is in process of changing cleaning services and Sara will ask if they can help once a company is chosen. Reviewed with Jessenia, who is unable to afford private services and who has been in contact with [employer] in the past. Will reach out to [employer] and [facility]. Pt reporting she is walking more with the walker but with increase in pain-discussed Gabapentin increase. Message left with [employer] [phone] and [facility] [phone] to inquire about assistance for cleaning of pt's apartment. Medication Compliance: Yes Side effects from medications: No Attending Groups: Yes Review of Systems Acute medical concerns: No Medical Review of Systems: unchanged Mental Status Exam Mental Status Exam Patient Appearance: Appropriate Patient Orientation: Person, Place, Time and Situation Level of Consciousness: Alert Patient Behavior: Talkative and Good Eye Contact Mood Description: Anxious and Sad Affect Description: Flat Patient Cognition Impaired: No Ability to Follow Directions: Good Speech Pattern: Spontaneous Speech Memory Description: Intact Hallucinations: None Delusions: Not Present Thought Process: Intact and Goal Oriented Thought Content: positive for Goal Oriented Depressive Symptoms: Increased Anxiety and Thoughts of /Suicide (denies) Judgement: Good Diagnostics Vital Signs (24Hr): Vital Signs - 24 hr 05/21/22 18:00 05/22/22 06:00 05/22/22 09:55 Temperature 97.3 F 97.4 F Pulse Rate 91 88 88 Respiratory Rate 18 16 Blood Pressure 185/92 H 159/86 H 159/86 H Pulse Oximetry 96 97 97 Oxygen Delivery Method Room Air Room Air Labs Results: 05/16/22 07:13 Labs: Laboratory Results - last 48 hr 05/20/22 05/21/22 05/21/22 17:04 07:58 12:14 POC Glucose 178 H 137 H 221 H Medications Medications Current Medications Acetaminophen (Acetaminophen 325 Mg Tablet) 650 mg PO Q6H PRN PRN Reason: Headache/Pain Mild Scale (1-3) Last Admin: 05/19/22 10:10 Dose: 650 mg Al Hydroxide/Mg Hydroxide (Magnesium Hydrox/Alum Hydrox 30 Ml Oral.Susp) 30 ml PO Q6H PRN PRN Reason: Heartburn/Nausea Clonazepam (Clonazepam 0.5 Mg Tablet) 0.5 mg PO BID PRN PRN Reason: Anxiety Last Admin: 05/17/22 13:59 Dose: 0.5 mg Dextrose (Dextrose 50 % 25 Gm/50 Ml Syringe) 25 gm IVPUSH Q15M PRN; Protocol PRN Reason: per Hypoglycemia Standing Ord. Escitalopram Oxalate (Escitalopram Oxalate 10 Mg Tablet) 10 mg PO DAILY [facility] Last Admin: 05/22/22 09:16 Dose: 10 mg Gabapentin (Gabapentin 300 Mg Capsule) 600 mg PO TID [facility] Glucose (Glucose Gel 15 Gm Gel..Gram.) 15 gm PO Q15M PRN; Protocol PRN Reason: per Hypoglycemia Standing Ord. Glyburide (Glyburide 2.5 Mg Tablet) 2.5 mg PO DAILY [facility] Last Admin: 05/22/22 09:16 Dose: 2.5 mg Hydroxyzine HCl (Hydroxyzine Hcl 25 Mg Tablet) 25 mg PO Q6H PRN PRN Reason: Anxiety Ibuprofen (Ibuprofen 400 Mg Tablet) 400 mg PO Q6H PRN PRN Reason: Pain, Mild (Pain Scale 1-3) Last Admin: 05/19/22 10:10 Dose: 400 mg Lisinopril (Lisinopril 20 Mg Tablet) 20 mg PO DAILY [facility]; Protocol Last Admin: 05/22/22 09:16 Dose: 20 mg Loperamide HCl (Loperamide Hcl 2 Mg Capsule) 4 mg PO Q6H PRN PRN Reason: loose stools Last Admin: 05/17/22 16:58 Dose: 4 mg Magnesium Hydroxide (Milk Of Magnesia 30 Ml Oral.Susp) 30 ml PO DAILY PRN PRN Reason: Constipation Multi-Ingred Cream/Lotion/Oil/Oint (Mineral Oil/Petrolatum,White 106 Gm Tube) 1 appl TOPICAL TID [facility]; Protocol Last Admin: 05/22/22 09:17 Dose: 1 appl Multivitamins/Vitamin C (Multivitamin Tablet) 1 tab PO DAILY [facility] Last Admin: 05/22/22 09:16 Dose: 1 tab Simethicone (Simethicone 80 Mg Tab.Chew) 80 mg PO QIDWMHS PRN PRN Reason: gas relief Last Admin: 05/21/22 20:45 Dose: 80 mg Trazodone HCl (Trazodone Hcl 50 Mg Tablet) 50 mg PO BEDTIME PRN PRN Reason: Insomnia Last Admin: 05/21/22 20:42 Dose: 50 mg Allergies Allergies Allergy/AdvReac Type Severity Reaction Status Date / Time spironolactone Allergy Unknown Unknown Verified 05/15/22 18:06 bees Allergy Unknown Unknown Uncoded 05/15/22 18:06 metformin Allergy Unknown Unknown Uncoded 05/15/22 18:06 shellfish Allergy Unknown Unknown Uncoded 05/15/22 18:06 Assessment & Plan Assessment & Plan (1) Recurrent major depression: Status: Acute Code(s): F33.9 - Major depressive disorder, recurrent, unspecified Plan 57 yo female s/p overdose on #6 Tylenol, Benadryl, Dramamine. Hx of depression, anxiety, cerebral palsy, diabetes and multiple medical issues that have been untreated. Pt reports hoarding sx, stating her apartment is too cluttered to ambulate safely. Currently, pt is experiencing pain and is using a walker, wheelchair and is struggling to ambulate. Plan: Lexapro 10 mg daily Klonopin 0.5 mg bid prn Ibuprofen prn Eucerin cream to feet Five minute checks-pt using a wheelchair Pt may require a medical bed Request for Varun DOYLE to resend medical clearance paperwork Hospitalist scheduled to see for eval-DM with metformin allergy, ambulation symptoms Referall back to PCP for GI, [employer], Dermatology, Respiratory, Rheumatology, Neurology alliances PT consult POC 05/19: will increase gabapentin to 400 mg TID 05/20/22- [facility], Discussed referral to SNF with team. 05/22/22- Increase Gabapentin to 600 mg tid, Pain 03/18. Messages left with [facility] and [facility] for services to help pt clean her home. Sara Mantilla, pt's residential foreign exchange services manager will be away next week-she asks that we leave a message with any updates regarding pt's progress in cleaning her apartment. I spent minutes with the patient and/or on the patient floor today, greater than?50% of which was spent counseling/coordinating care. Patient educated on: therapeutic strategies and medical condition Informed Consent: understands and further education needed Reason for contiued inpatient stay Substantial Risk for: med/psych decompensation
[2022-05-22] MEDS: Gabapentin 300 MG CAPSULE 600 MG PO ×2 (15:13→19:53)
[2022-05-22 18:00] VITALS: BP 145/78; PULSE 78; RESP 16; TEMP 36.6; O2SAT 98
[2022-05-23] MEDS: Escitalopram Oxalate 10 MG TABLET PO (08:36)
[2022-05-23] MEDS: Multivitamin TABLET 1 TAB PO (08:36)
[2022-05-23] MEDS: glyBURIDE 2.5 MG TABLET PO (08:36)
[2022-05-23] MEDS: lisinopriL 20 MG TABLET PO (08:36)
[2022-05-23] MEDS: Gabapentin 300 MG CAPSULE 600 MG PO ×3 (08:36→20:48)
[2022-05-23 09:11] LABS: Glucose, Whole Blood 144 mg/dL (60-115)
[2022-05-23] MEDS: Mineral Oil/Petrolatum,White 106 GM Tube 1 APPL TOPICAL ×2 (09:26→14:54)
[2022-05-23 09:38] VITALS: BP 128/81; PULSE 71; RESP 18; TEMP 36.5; O2SAT 97
[2022-05-23] MEDS: Simethicone 80 MG TAB.CHEW PO (14:15)
--- NOTE | 2022-05-23 15:38 | P.PNPSI_ITS ---
Subjective Subjective Date of Service: 05/23/22 Reason For Visit: anxiety disorder, recurrent episode, hoarding diso Interim History: Chart reviewed and discussed with nursing. As per nursing patient prefers not to be in medical bed and moved to a regular bed. Will therefore discontinue one-to-one observation. Patient reports overall feeling okay. Utilizing walker. Feeling well cared for. Looking forward to subacute physical rehab this week in [place] where she lives. Medication Compliance: Yes Side effects from medications: No Attending Groups: Yes Review of Systems Acute medical concerns: No Review of Systems Review of Systems Nothing acute Mental Status Exam Mental Status Exam Narrative: Pleasant. Engaged. Organized. Denies depression. No SI HI. No psychosis. Insight and judgment okay Diagnostics Vital Signs (24Hr): Vital Signs - 24 hr 05/22/22 18:00 05/23/22 09:38 Temperature 97.8 F 97.7 F Pulse Rate 78 71 Respiratory Rate 16 18 Blood Pressure 145/78 H 128/81 Pulse Oximetry 98 97 Oxygen Delivery Method Room Air Room Air Labs Results: 05/16/22 07:13 Labs: Laboratory Results - last 48 hr 05/23/22 09:01 POC Glucose 144 H Imaging Radiology Impressions: ITS Impressions Lumbar Spine X-Ray 05/20/22 18:55 IMPRESSION: Multilevel degenerative changes. Medications Medications Current Medications Acetaminophen (Acetaminophen 325 Mg Tablet) 650 mg PO Q6H PRN PRN Reason: Headache/Pain Mild Scale (1-3) Last Admin: 05/19/22 10:10 Dose: 650 mg Al Hydroxide/Mg Hydroxide (Magnesium Hydrox/Alum Hydrox 30 Ml Oral.Susp) 30 ml PO Q6H PRN PRN Reason: Heartburn/Nausea Clonazepam (Clonazepam 0.5 Mg Tablet) 0.5 mg PO BID PRN PRN Reason: Anxiety Last Admin: 05/17/22 13:59 Dose: 0.5 mg Dextrose (Dextrose 50 % 25 Gm/50 Ml Syringe) 25 gm IVPUSH Q15M PRN; Protocol PRN Reason: per Hypoglycemia Standing Ord. Escitalopram Oxalate (Escitalopram Oxalate 10 Mg Tablet) 10 mg PO DAILY [facility] Last Admin: 05/23/22 08:36 Dose: 10 mg Gabapentin (Gabapentin 300 Mg Capsule) 600 mg PO TID [facility] Last Admin: 05/23/22 14:09 Dose: 600 mg Glucose (Glucose Gel 15 Gm Gel..Gram.) 15 gm PO Q15M PRN; Protocol PRN Reason: per Hypoglycemia Standing Ord. Glyburide (Glyburide 2.5 Mg Tablet) 2.5 mg PO DAILY [facility] Last Admin: 05/23/22 08:36 Dose: 2.5 mg Hydroxyzine HCl (Hydroxyzine Hcl 25 Mg Tablet) 25 mg PO Q6H PRN PRN Reason: Anxiety Ibuprofen (Ibuprofen 400 Mg Tablet) 400 mg PO Q6H PRN PRN Reason: Pain, Mild (Pain Scale 1-3) Last Admin: 05/19/22 10:10 Dose: 400 mg Lisinopril (Lisinopril 20 Mg Tablet) 20 mg PO DAILY [facility]; Protocol Last Admin: 05/23/22 08:36 Dose: 20 mg Loperamide HCl (Loperamide Hcl 2 Mg Capsule) 4 mg PO Q6H PRN PRN Reason: loose stools Last Admin: 05/17/22 16:58 Dose: 4 mg Magnesium Hydroxide (Milk Of Magnesia 30 Ml Oral.Susp) 30 ml PO DAILY PRN PRN Reason: Constipation Multi-Ingred Cream/Lotion/Oil/Oint (Mineral Oil/Petrolatum,White 106 Gm Tube) 1 appl TOPICAL TID [facility]; Protocol Last Admin: 05/23/22 14:54 Dose: 1 appl Multivitamins/Vitamin C (Multivitamin Tablet) 1 tab PO DAILY [facility] Last Admin: 05/23/22 08:36 Dose: 1 tab Simethicone (Simethicone 80 Mg Tab.Chew) 80 mg PO QIDWMHS PRN PRN Reason: gas relief Last Admin: 05/23/22 14:15 Dose: 80 mg Trazodone HCl (Trazodone Hcl 50 Mg Tablet) 50 mg PO BEDTIME PRN PRN Reason: Insomnia Last Admin: 05/21/22 20:42 Dose: 50 mg Allergies Allergies Allergy/AdvReac Type Severity Reaction Status Date / Time spironolactone Allergy Unknown Unknown Verified 05/15/22 18:06 bees Allergy Unknown Unknown Uncoded 05/15/22 18:06 metformin Allergy Unknown Unknown Uncoded 05/15/22 18:06 shellfish Allergy Unknown Unknown Uncoded 05/15/22 18:06 Assessment & Plan Assessment & Plan (1) Recurrent major depression: Status: Acute Code(s): F33.9 - Major depressive disorder, recurrent, unspecified Plan 57 yo female s/p overdose on #6 Tylenol, Benadryl, Dramamine. Hx of depression, anxiety, cerebral palsy, diabetes and multiple medical issues that have been untreated. Pt reports hoarding sx, stating her apartment is too cluttered to ambulate safely. Currently, pt is experiencing pain and is using a walker, wheelchair and is struggling to ambulate. Plan: Lexapro 10 mg daily Klonopin 0.5 mg bid prn Ibuprofen prn Eucerin cream to feet Five minute checks-pt using a wheelchair Pt may require a medical bed Request for Varun DOYLE to resend medical clearance paperwork Hospitalist scheduled to see for eval-DM with metformin allergy, ambulation symptoms Referall back to PCP for GI, [employer], Dermatology, Respiratory, Rheumatology, Neuro logy alliances PT consult POC 05/19: will increase gabapentin to 400 mg TID 05/20/22- [facility], Discussed referral to SNF with team. 05/22/22- Increase Gabapentin to 600 mg tid, Pain 03/18. Messages left with [facility] and [facility] for services to help pt clean her home. Sara Mantilla, pt's residential environmental service aide will be away next week-she asks that we leave a message with any updates regarding pt's progress in cleaning her apartment. 05/23/2022: No changes I spent minutes with the patient and/or on the patient floor today, greater than?50% of which was spent counseling/coordinating care. Reason for contiued inpatient stay Substantial Risk for: rapid decompensation
[2022-05-23 15:41] VITALS: BP 142/83; PULSE 84; TEMP 36.6
[2022-05-23] MEDS: traZODone HCL 50 MG TABLET PO (20:48)
[2022-05-24 06:00] VITALS: BP 130/71; PULSE 81; RESP 18; TEMP 36.3; O2SAT 96
[2022-05-24 08:32] LABS: Glucose, Whole Blood 163 mg/dL (60-115)
[2022-05-24] MEDS: Gabapentin 300 MG CAPSULE 600 MG PO ×3 (08:41→20:32)
[2022-05-24] MEDS: Multivitamin TABLET 1 TAB PO (08:41)
[2022-05-24] MEDS: Ibuprofen 400 MG TABLET PO (08:41)
[2022-05-24] MEDS: lisinopriL 20 MG TABLET PO (08:41)
[2022-05-24] MEDS: Escitalopram Oxalate 10 MG TABLET PO (08:41)
[2022-05-24] MEDS: glyBURIDE 2.5 MG TABLET PO (08:42)
--- NOTE | 2022-05-24 12:37 | P.PNPSI_ITS ---
Subjective Subjective Date of Service: 05/24/22 Reason For Visit: anxiety disorder, recurrent episode, hoarding diso Subjective Notes: Conditional Voluntary Interim History: Chart reviewed and discussed with nursing. Patient tried not being on medical but yesterday, but return to same last night and therefore back on one-to-one observation.. Patient reports overall feeling okay. Utilizing walker. Feeling well cared for. Enjoys the company of staff and patients. We did talk about rotating Tylenol and ibuprofen for pain management. Looking forward to subacute physical rehab this week in [place] where she lives. Medication Compliance: Yes Side effects from medications: No Attending Groups: Yes Review of Systems Acute medical concerns: No Review of Systems Review of Systems Nothing acute Mental Status Exam Mental Status Exam Narrative: Pleasant. Engaged. Organized. Denies depression. No SI HI. No psychosis. Insight and judgment okay Diagnostics Vital Signs (24Hr): Vital Signs - 24 hr 05/23/22 15:41 05/24/22 06:00 Temperature 97.8 F 97.3 F Pulse Rate 84 81 Respiratory Rate 18 Blood Pressure 142/83 H 130/71 Pulse Oximetry 96 Oxygen Delivery Method Room Air Labs Results: 05/16/22 07:13 Labs: Laboratory Results - last 48 hr 05/23/22 05/24/22 09:01 08:15 POC Glucose 144 H 163 H Imaging Radiology Impressions: ITS Impressions Lumbar Spine X-Ray 05/20/22 18:55 IMPRESSION: Multilevel degenerative changes. Medications Medications Current Medications Acetaminophen (Acetaminophen 325 Mg Tablet) 650 mg PO Q6H PRN PRN Reason: Headache/Pain Mild Scale (1-3) Last Admin: 05/19/22 10:10 Dose: 650 mg Al Hydroxide/Mg Hydroxide (Magnesium Hydrox/Alum Hydrox 30 Ml Oral.Susp) 30 ml PO Q6H PRN PRN Reason: Heartburn/Nausea Clonazepam (Clonazepam 0.5 Mg Tablet) 0.5 mg PO BID PRN PRN Reason: Anxiety Last Admin: 05/17/22 13:59 Dose: 0.5 mg Dextrose (Dextrose 50 % 25 Gm/50 Ml Syringe) 25 gm IVPUSH Q15M PRN; Protocol PRN Reason: per Hypoglycemia Standing Ord. Escitalopram Oxalate (Escitalopram Oxalate 10 Mg Tablet) 10 mg PO DAILY [facility] Last Admin: 05/24/22 08:41 Dose: 10 mg Gabapentin (Gabapentin 300 Mg Capsule) 600 mg PO TID [facility] Last Admin: 05/24/22 08:41 Dose: 600 mg Glucose (Glucose Gel 15 Gm Gel..Gram.) 15 gm PO Q15M PRN; Protocol PRN Reason: per Hypoglycemia Standing Ord. Glyburide (Glyburide 2.5 Mg Tablet) 2.5 mg PO DAILY [facility] Last Admin: 05/24/22 08:42 Dose: 2.5 mg Hydroxyzine HCl (Hydroxyzine Hcl 25 Mg Tablet) 25 mg PO Q6H PRN PRN Reason: Anxiety Ibuprofen (Ibuprofen 400 Mg Tablet) 400 mg PO Q6H PRN PRN Reason: Pain, Mild (Pain Scale 1-3) Last Admin: 05/24/22 08:41 Dose: 400 mg Lisinopril (Lisinopril 20 Mg Tablet) 20 mg PO DAILY [facility]; Protocol Last Admin: 05/24/22 08:41 Dose: 20 mg Loperamide HCl (Loperamide Hcl 2 Mg Capsule) 4 mg PO Q6H PRN PRN Reason: loose stools Last Admin: 05/17/22 16:58 Dose: 4 mg Magnesium Hydroxide (Milk Of Magnesia 30 Ml Oral.Susp) 30 ml PO DAILY PRN PRN Reason: Constipation Multi-Ingred Cream/Lotion/Oil/Oint (Mineral Oil/Petrolatum,White 106 Gm Tube) 1 appl TOPICAL TID [facility]; Protocol Last Admin: 05/24/22 08:45 Dose: Not Given Multivitamins/Vitamin C (Multivitamin Tablet) 1 tab PO DAILY [facility] Last Admin: 05/24/22 08:41 Dose: 1 tab Simethicone (Simethicone 80 Mg Tab.Chew) 80 mg PO QIDWMHS PRN PRN Reason: gas relief Last Admin: 05/23/22 14:15 Dose: 80 mg Trazodone HCl (Trazodone Hcl 50 Mg Tablet) 50 mg PO BEDTIME PRN PRN Reason: Insomnia Last Admin: 05/23/22 20:48 Dose: 50 mg Allergies Allergies Allergy/AdvReac Type Severity Reaction Status Date / Time spironolactone Allergy Unknown Unknown Verified 05/15/22 18:06 bees Allergy Unknown Unknown Uncoded 05/15/22 18:06 metformin Allergy Unknown Unknown Uncoded 05/15/22 18:06 shellfish Allergy Unknown Unknown Uncoded 05/15/22 18:06 Assessment & Plan Assessment & Plan (1) Recurrent major depression: Status: Acute Code(s): F33.9 - Major depressive disorder, recurrent, unspecified Plan 57 yo female s/p overdose on #6 Tylenol, Benadryl, Dramamine. Hx of depression, anxiety, cerebral palsy, diabetes and multiple medical issues that have been untreated. Pt reports hoarding sx, stating her apartment is too cluttered to ambulate safely. Currently, pt is experiencing pain and is using a walker, wheelchair and is struggling to ambulate. Plan: Lexapro 10 mg daily Klonopin 0.5 mg bid prn Ibuprofen prn Eucerin cream to feet Five minute checks-pt using a wheelchair Pt may require a medical bed Request for Varun DOYLE to resend medical clearance paperwork Hospitalist scheduled to see for eval-DM with metformin allergy, ambulation symptoms Referall back to PCP for GI, [employer], Dermatology, Respiratory, Rheumatology, Neurology alliances PT consult POC 05/19: will increase gabapentin to 400 mg TID 05/20/22- [facility], Discussed referral to SNF with team. 05/22/22- Increase Gabapentin to 600 mg tid, Pain 03/18. Messages left with [facility] and [facility] for services to help pt clean her home. Sara Mantilla, pt's residential chief optometry service will be away next week-she asks that we leave a message with any updates regarding pt's progress in cleaning her apartment. 05/24/2022: No changes I spent minutes with the patient and/or on the patient floor today, greater than?50% of which was spent counseling/coordinating care. Reason for contiued inpatient stay Substantial Risk for: rapid decompensation
[2022-05-24] MEDS: Mineral Oil/Petrolatum,White 106 GM Tube 1 APPL TOPICAL (14:01)
[2022-05-24] MEDS: Simethicone 80 MG TAB.CHEW PO ×2 (15:31→20:42)
[2022-05-24 18:50] VITALS: BP 160/79; PULSE 80; TEMP 36.6
[2022-05-24] MEDS: traZODone HCL 50 MG TABLET PO (20:32)
[2022-05-25 06:00] VITALS: BP 167/79; PULSE 78; RESP 18
[2022-05-25] MEDS: Ibuprofen 400 MG TABLET PO (06:47)
[2022-05-25] MEDS: Escitalopram Oxalate 10 MG TABLET PO (08:26)
[2022-05-25] MEDS: glyBURIDE 2.5 MG TABLET PO (08:26)
[2022-05-25] MEDS: Gabapentin 300 MG CAPSULE 600 MG PO ×3 (08:26→21:27)
[2022-05-25] MEDS: Multivitamin TABLET 1 TAB PO (08:26)
[2022-05-25] MEDS: lisinopriL 20 MG TABLET PO (08:27)
--- NOTE | 2022-05-25 12:58 | P.PNPSI_ITS ---
Subjective Subjective Date of Service: 05/25/22 Reason For Visit: anxiety disorder, recurrent episode, hoarding diso Subjective Notes: Conditional Voluntary Healthcare Proxy: No Guardianship: No Medical Problems Affecting Mental Status: No Interim History: I don't think I can go on Wednesday. I cannot stand to brush my teeth I cannot use the bathroom independently Someone has to clean the apartment before I go back there. Pt was encouraged to contact her landlord today to discuss if there are resources to clean her apartment and remove trash. She reports she left a message. with him this afternoon without call back. Reports difficulty with self care. Believes she needs rehab level of care to improve ambulation and strength training. Thus far, resources contacted are limited in their availability. Pt will have authorization for [facility] within the next few weeks. Denies depressive or anxious sx-just reports needing physical assist. Medication Compliance: Yes Side effects from medications: No Attending Groups: Intermittent Review of Systems Acute medical concerns: No Medical Review of Systems: unchanged Mental Status Exam Mental Status Exam Patient Appearance: Fatigued and Appropriate Patient Orientation: Person, Place, Time and Situation Level of Consciousness: Alert Patient Behavior: Appropriate, Talkative, Cooperative and Good Eye Contact Mood Description: Appropriate Affect Description: Appropriate Patient Cognition Impaired: No Ability to Follow Directions: Good Speech Pattern: Spontaneous Speech Memory Description: Intact Hallucinations: None Delusions: Not Present Perceptual Disturbances: Derealization Thought Process: Intact Thought Content: positive for Intact, positive for [place] and positive for Circumstantial Depressive Symptoms: Diff. Making Decisions, Muscle Pain and Low Self Esteem Judgement: Good Diagnostics Vital Signs (24Hr): Vital Signs - 24 hr 05/24/22 18:50 05/25/22 06:00 Temperature 97.8 F Pulse Rate 80 78 Respiratory Rate 18 Blood Pressure 160/79 H 167/79 H Oxygen Delivery Method Room Air Labs Results: 05/16/22 07:13 Labs: Laboratory Results - last 48 hr 05/24/22 08:15 POC Glucose 163 H Imaging Radiology Impressions: ITS Impressions Lumbar Spine X-Ray 05/20/22 18:55 IMPRESSION: Multilevel degenerative changes. Medications Medications Current Medications Acetaminophen (Acetaminophen 325 Mg Tablet) 650 mg PO Q6H PRN PRN Reason: Headache/Pain Mild Scale (1-3) Last Admin: 05/19/22 10:10 Dose: 650 mg Al Hydroxide/Mg Hydroxide (Magnesium Hydrox/Alum Hydrox 30 Ml Oral.Susp) 30 ml PO Q6H PRN PRN Reason: Heartburn/Nausea Clonazepam (Clonazepam 0.5 Mg Tablet) 0.5 mg PO BID PRN PRN Reason: Anxiety Last Admin: 05/17/22 13:59 Dose: 0.5 mg Dextrose (Dextrose 50 % 25 Gm/50 Ml Syringe) 25 gm IVPUSH Q15M PRN; Protocol PRN Reason: per Hypoglycemia Standing Ord. Escitalopram Oxalate (Escitalopram Oxalate 10 Mg Tablet) 10 mg PO DAILY [facility] Last Admin: 05/25/22 08:26 Dose: 10 mg Gabapentin (Gabapentin 300 Mg Capsule) 600 mg PO TID [facility] Last Admin: 05/25/22 08:26 Dose: 600 mg Glucose (Glucose Gel 15 Gm Gel..Gram.) 15 gm PO Q15M PRN; Protocol PRN Reason: per Hypoglycemia Standing Ord. Glyburide (Glyburide 2.5 Mg Tablet) 2.5 mg PO DAILY [facility] Last Admin: 05/25/22 08:26 Dose: 2.5 mg Hydroxyzine HCl (Hydroxyzine Hcl 25 Mg Tablet) 25 mg PO Q6H PRN PRN Reason: Anxiety Ibuprofen (Ibuprofen 400 Mg Tablet) 400 mg PO Q6H PRN PRN Reason: Pain, Mild (Pain Scale 1-3) Last Admin: 05/25/22 06:47 Dose: 400 mg Lisinopril (Lisinopril 20 Mg Tablet) 20 mg PO DAILY [facility]; Protocol Last Admin: 05/25/22 08:27 Dose: 20 mg Loperamide HCl (Loperamide Hcl 2 Mg Capsule) 4 mg PO Q6H PRN PRN Reason: loose stools Last Admin: 05/17/22 16:58 Dose: 4 mg Magnesium Hydroxide (Milk Of Magnesia 30 Ml Oral.Susp) 30 ml PO DAILY PRN PRN Reason: Constipation Multi-Ingred Cream/Lotion/Oil/Oint (Mineral Oil/Petrolatum,White 106 Gm Tube) 1 appl TOPICAL TID [facility]; Protocol Last Admin: 05/25/22 08:29 Dose: Not Given Multivitamins/Vitamin C (Multivitamin Tablet) 1 tab PO DAILY [facility] Last Admin: 05/25/22 08:26 Dose: 1 tab Simethicone (Simethicone 80 Mg Tab.Chew) 80 mg PO QIDWMHS PRN PRN Reason: gas relief Last Admin: 05/24/22 20:42 Dose: 80 mg Trazodone HCl (Trazodone Hcl 50 Mg Tablet) 50 mg PO BEDTIME PRN PRN Reason: Insomnia Last Admin: 05/24/22 20:32 Dose: 50 mg Allergies Allergies Allergy/AdvReac Type Severity Reaction Status Date / Time spironolactone Allergy Unknown Unknown Verified 05/15/22 18:06 bees Allergy Unknown Unknown Uncoded 05/15/22 18:06 metformin Allergy Unknown Unknown Uncoded 05/15/22 18:06 shellfish Allergy Unknown Unknown Uncoded 05/15/22 18:06 Assessment & Plan Assessment & Plan (1) Recurrent major depression: Status: Acute Code(s): F33.9 - Major depressive disorder, recurrent, unspecified Plan 57 yo female s/p overdose on #6 Tylenol, Benadryl, Dramamine. Hx of depression, anxiety, cerebral palsy, diabetes and multiple medical issues that have been untreated. Pt reports hoarding sx, stating her apartment is too cluttered to ambulate safely. Currently, pt is experiencing pain and is using a walker, wheelchair and is struggling to ambulate. Plan: Lexapro 10 mg daily Klonopin 0.5 mg bid prn Ibuprofen prn Eucerin cream to feet Five minute checks-pt using a wheelchair Pt may require a medical bed Request for Varun DOYLE to resend medical clearance paperwork Hospitalist scheduled to see for eval-DM with metformin allergy, ambulation symptoms Referall back to PCP for GI, MANAGER CARDIAC CATH, Dermatology, Respiratory, Rheumatology, Neurology alliances PT consult POC 05/19: will increase gabapentin to 400 mg TID 05/20/22- [facility] Spine, Discussed referral to SNF with team. 05/22/22- Increase Gabapentin to 600 mg tid, Pain 03/18. Messages left with [facility] and [employer] for services to help pt clean her home. Sara Mantilla, pt's residential member service specialist will be away next week-she asks that we leave a message with any updates regarding pt's progress in cleaning her apartment. 05/24/2022: No changes 05/25/22: Continue current plan. Discharge focus. I spent minutes with the patient and/or on the patient floor today, greater than?50% of which was spent counseling/coordinating care. Patient educated on: therapeutic strategies Informed Consent: understands and further education needed Reason for contiued inpatient stay Substantial Risk for: inability to function and med/psych decompensation
[2022-05-25] MEDS: Simethicone 80 MG TAB.CHEW PO ×2 (14:09→21:39)
[2022-05-25 18:00] VITALS: BP 142/72; PULSE 82; TEMP 37.2; O2SAT 96
[2022-05-26] MEDS: Acetaminophen 325 MG TABLET 650 MG PO (04:18)
[2022-05-26] MEDS: clonazePAM 0.5 MG TABLET PO (04:20)
[2022-05-26 06:00] VITALS: BP 156/73; PULSE 74; RESP 16; TEMP 36.6; O2SAT 97
[2022-05-26] MEDS: Multivitamin TABLET 1 TAB PO (08:13)
[2022-05-26] MEDS: glyBURIDE 2.5 MG TABLET PO (08:13)
[2022-05-26] MEDS: Escitalopram Oxalate 10 MG TABLET PO (08:13)
[2022-05-26] MEDS: Gabapentin 300 MG CAPSULE 600 MG PO ×3 (08:13→20:48)
[2022-05-26] MEDS: lisinopriL 20 MG TABLET PO (08:13)
[2022-05-26 08:47] VITALS: BP 142/72; PULSE 82; O2SAT 96
[2022-05-26] MEDS: Ibuprofen 400 MG TABLET PO (11:20)
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
[2022-05-26] MEDS: Magnesium Hydrox/Alum Hydrox 30 ML ORAL.SUSP PO (17:04)
[2022-05-26 18:00] VITALS: BP 136/75; PULSE 79; RESP 18; O2SAT 95
[2022-05-26] MEDS: risperiDONE 0.5 MG TABLET PO (20:48)
[2022-05-27 09:22] VITALS: BP 153/93; PULSE 87; RESP 17; TEMP 36.2; O2SAT 94
[2022-05-27] MEDS: lisinopriL 20 MG TABLET PO (09:26)
[2022-05-27] MEDS: Escitalopram Oxalate 5 MG TABLET 15 MG PO (09:27)
[2022-05-27] MEDS: Multivitamin TABLET 1 TAB PO (09:27)
[2022-05-27] MEDS: glyBURIDE 2.5 MG TABLET PO (09:28)
[2022-05-27] MEDS: Gabapentin 300 MG CAPSULE 600 MG PO ×3 (09:28→21:06)
[2022-05-27] MEDS: Simethicone 80 MG TAB.CHEW PO (09:32)
--- NOTE | 2022-05-27 15:06 | P.PNPSI_ITS ---
Subjective Subjective Date of Service: 05/27/22 Reason For Visit: anxiety disorder, recurrent episode, hoarding diso Subjective Notes: Conditional Voluntary Healthcare Proxy: No Guardianship: No Medical Problems Affecting Mental Status: No Interim History: Pt reporting leg/back sciatica type pain. Continues to request subacute admission to assist with ambulation, ADL's, rehab with strength training. Several applications are out to subacute. Using a walker. Team report pt had an episode of weakness yesterday and was assisted to the floor (fall avoided). Team calls pt's landlord, residential team daily with her to discuss creation of a plan to assist in moving trash out of the apartment and cleaning the apartment. Pt is resistant to calling on her own-losing numbers given by team and presents as amotivated to work out this issue. Medication Compliance: Yes Side effects from medications: No Attending Groups: Yes Review of Systems Acute medical concerns: No Medical Review of Systems: unchanged Mental Status Exam Mental Status Exam Patient Appearance: Fatigued and Appropriate Patient Orientation: Person, Place, Time and Situation Level of Consciousness: Alert Patient Behavior: Appropriate, Talkative, Cooperative and Good Eye Contact Mood Description: Depressed and Angry Affect Description: Flat Patient Cognition Impaired: No Ability to Follow Directions: Good Speech Pattern: Spontaneous Speech Memory Description: Intact Hallucinations: None Delusions: Not Present Perceptual Disturbances: Derealization Thought Process: Intact Thought Content: positive for [place], positive for Circumstantial and positive for Suicidal Ideation Depressive Symptoms: Diff. Making Decisions, Muscle Pain, Thoughts of /Suicide and Low Self Esteem Judgement: Good Diagnostics Vital Signs (24Hr): Vital Signs - 24 hr 05/26/22 18:00 05/27/22 09:22 Temperature 97.2 F Pulse Rate 79 87 Respiratory Rate 18 17 Blood Pressure 136/75 153/93 H Pulse Oximetry 95 94 Oxygen Delivery Method Room Air Room Air Labs Results: 05/16/22 07:13 Imaging Radiology Impressions: ITS Impressions Lumbar Spine X-Ray 05/20/22 18:55 IMPRESSION: Multilevel degenerative changes. Medications Medications Current Medications Acetaminophen (Acetaminophen 325 Mg Tablet) 650 mg PO Q6H PRN PRN Reason: Headache/Pain Mild Scale (1-3) Last Admin: 05/26/22 04:18 Dose: 650 mg Al Hydroxide/Mg Hydroxide (Magnesium Hydrox/Alum Hydrox 30 Ml Oral.Susp) 30 ml PO Q6H PRN PRN Reason: Heartburn/Nausea Last Admin: 05/26/22 17:04 Dose: 30 ml Clonazepam (Clonazepam 0.5 Mg Tablet) 0.5 mg PO BID PRN PRN Reason: Anxiety Last Admin: 05/26/22 04:20 Dose: 0.5 mg Dextrose (Dextrose 50 % 25 Gm/50 Ml Syringe) 25 gm IVPUSH Q15M PRN; Protocol PRN Reason: per Hypoglycemia Standing Ord. Escitalopram Oxalate (Escitalopram Oxalate 5 Mg Tablet) 15 mg PO DAILY [facility] Last Admin: 05/27/22 09:27 Dose: 15 mg Gabapentin (Gabapentin 300 Mg Capsule) 600 mg PO TID [facility] Last Admin: 05/27/22 14:36 Dose: 600 mg Glucose (Glucose Gel 15 Gm Gel..Gram.) 15 gm PO Q15M PRN; Protocol PRN Reason: per Hypoglycemia Standing Ord. Glyburide (Glyburide 2.5 Mg Tablet) 2.5 mg PO DAILY [facility] Last Admin: 05/27/22 09:28 Dose: 2.5 mg Hydroxyzine HCl (Hydroxyzine Hcl 25 Mg Tablet) 25 mg PO Q6H PRN PRN Reason: Anxiety Ibuprofen (Ibuprofen 400 Mg Tablet) 400 mg PO Q6H PRN PRN Reason: Pain, Mild (Pain Scale 1-3) Last Admin: 05/26/22 11:20 Dose: 400 mg Lisinopril (Lisinopril 20 Mg Tablet) 20 mg PO DAILY [facility]; Protocol Last Admin: 05/27/22 09:26 Dose: 20 mg Loperamide HCl (Loperamide Hcl 2 Mg Capsule) 4 mg PO Q6H PRN PRN Reason: loose stools Last Admin: 05/17/22 16:58 Dose: 4 mg Magnesium Hydroxide (Milk Of Magnesia 30 Ml Oral.Susp) 30 ml PO DAILY PRN PRN Reason: Constipation Multi-Ingred Cream/Lotion/Oil/Oint (Mineral Oil/Petrolatum,White 106 Gm Tube) 1 appl TOPICAL TID [facility]; Protocol Last Admin: 05/27/22 14:28 Dose: Not Given Multivitamins/Vitamin C (Multivitamin Tablet) 1 tab PO DAILY [facility] Last Admin: 05/27/22 09:27 Dose: 1 tab Risperidone (Risperidone 0.5 Mg Tablet) 0.5 mg PO BEDTIME [facility] Last Admin: 05/26/22 20:48 Dose: 0.5 mg Simethicone (Simethicone 80 Mg Tab.Chew) 80 mg PO QIDWMHS PRN PRN Reason: gas relief Last Admin: 05/27/22 09:32 Dose: 80 mg Trazodone HCl (Trazodone Hcl 50 Mg Tablet) 50 mg PO BEDTIME PRN PRN Reason: Insomnia Last Admin: 05/24/22 20:32 Dose: 50 mg Allergies Allergies Allergy/AdvReac Type Severity Reaction Status Date / Time spironolactone Allergy Unknown Unknown Verified 05/15/22 18:06 bees Allergy Unknown Unknown Uncoded 05/15/22 18:06 metformin Allergy Unknown Unknown Uncoded 05/15/22 18:06 shellfish Allergy Unknown Unknown Uncoded 05/15/22 18:06 Assessment & Plan Assessment & Plan (1) Recurrent major depression: Status: Acute Code(s): F33.9 - Major depressive disorder, recurrent, unspecified Plan 57 yo female s/p overdose on #6 Tylenol, Benadryl, Dramamine. Hx of depression, anxiety, cerebral palsy, diabetes and multiple medical issues that have been untreated. Pt reports hoarding sx, stating her apartment is too cluttered to ambulate safely. Currently, pt is experiencing pain and is using a walker, wheelchair and is struggling to ambulate. Plan: Lexapro 10 mg daily Klonopin 0.5 mg bid prn Ibuprofen prn Eucerin cream to feet Five minute checks-pt using a wheelchair Pt may require a medical bed Request for Varun DOYLE to resend medical clearance paperwork Hospitalist scheduled to see for eval-DM with metformin allergy, ambulation symptoms Referall back to PCP for GI, SIX SIGMA BLACK BELT ENGINEER, Dermatology, Respiratory, Rheumatology, Neurology alliances PT consult POC 05/19: will increase gabapentin to 400 mg TID 05/20/22- [facility] Spine, Discussed referral to SNF with team. 05/22/22- Increase Gabapentin to 600 mg tid, Pain 03/18. Messages left with [facility] and [facility] for services to help pt clean her home. Sara Mantilla, pt's residential manager service desk will be away next week-she asks that we leave a message with any updates regarding pt's progress in cleaning her apartment. 05/24/2022: No changes 05/26/22: Pt feeling an increase in SI/HI due to pain, inability to care for herself and not having her home cleaned to return to. Reviewing resources with pt. Increase Lexapro to 15 mg daily Risperdal 0.5 mg HS to assist with grounding of thoughts. 05/27/22: Continue to work with pt on discharge planning and looking for solutions to problems to get her apartment prepared for her to return. Pt is pending [facility] services, who believe they will be able to help her in the future. The current issue is the immediate care and cleaning of the home. Pt does not believe she can participate at this time. I spent minutes with the patient and/or on the patient floor today, greater than?50% of which was spent counseling/coordinating care. Patient educated on: therapeutic strategies and other Informed Consent: understands Reason for contiued inpatient stay Substantial Risk for: harm to self, inability to function and med/psych decompensation
[2022-05-27] MEDS: Ibuprofen 400 MG TABLET PO (17:44)
[2022-05-27 17:59] VITALS: BP 155/88; PULSE 90; RESP 18; TEMP 36.4; O2SAT 97
[2022-05-27] MEDS: traZODone HCL 50 MG TABLET PO (21:06)
[2022-05-27] MEDS: risperiDONE 0.5 MG TABLET PO (21:06)
[2022-05-27] MEDS: Acetaminophen 325 MG TABLET 650 MG PO (21:06)
[2022-05-28 06:00] VITALS: BP 178/98; PULSE 78; RESP 16; TEMP 36.6; O2SAT 95
[2022-05-28] MEDS: Gabapentin 300 MG CAPSULE 600 MG PO ×3 (08:53→20:09)
[2022-05-28] MEDS: Escitalopram Oxalate 5 MG TABLET 15 MG PO (08:54)
[2022-05-28] MEDS: Multivitamin TABLET 1 TAB PO (08:54)
[2022-05-28] MEDS: glyBURIDE 2.5 MG TABLET PO (08:54)
[2022-05-28] MEDS: lisinopriL 20 MG TABLET PO (08:55)
[2022-05-28 10:11] VITALS: BP 178/98; PULSE 78; O2SAT 95
[2022-05-28 17:19] VITALS: BP 172/78; PULSE 88; RESP 16; TEMP 36.6; O2SAT 98
[2022-05-28] MEDS: risperiDONE 0.5 MG TABLET PO (20:09)
[2022-05-28] MEDS: Ibuprofen 400 MG TABLET PO (20:15)
[2022-05-28] MEDS: Acetaminophen 325 MG TABLET 650 MG PO (20:15)
[2022-05-29] MEDS: traZODone HCL 50 MG TABLET PO (03:16)
[2022-05-29 06:00] VITALS: BP 170/80; PULSE 79; RESP 18; TEMP 36.1; O2SAT 96
[2022-05-29] MEDS: Gabapentin 300 MG CAPSULE 600 MG PO ×2 (09:20→20:26)
[2022-05-29] MEDS: glyBURIDE 2.5 MG TABLET PO (09:21)
[2022-05-29] MEDS: lisinopriL 20 MG TABLET PO (09:21)
[2022-05-29] MEDS: Escitalopram Oxalate 5 MG TABLET 15 MG PO (09:21)
[2022-05-29] MEDS: Multivitamin TABLET 1 TAB PO (09:21)
[2022-05-29] MEDS: Simethicone 80 MG TAB.CHEW PO (09:56)
[2022-05-29 10:33] LABS: COVID-19 Test Negative (Negative); IDNOW Serial# 55D5AD1C
[2022-05-29] MEDS: Lidocaine 4 % Patch ADH..PATCH 1 PATCH TRANSDERMA (11:47)
[2022-05-29] MEDS: Gabapentin 600 MG TABLET 800 MG PO (14:38)
--- NOTE | 2022-05-29 15:01 | HO.PSYCHPN ---
Subjective Subjective Date of Service: 05/28/22 Reason For Visit: anxiety disorder, recurrent episode, hoarding diso Subjective Notes: Conditional Voluntary Healthcare Proxy: No Guardianship: No Medical Problems Affecting Mental Status: No Interim History: Pt reporting pain. Discussed making a change with Gabapentin 600 mg bid, 800 mg mid day as pt reports the most severe pain is early evening. Pt agrees. Pt made a call with team to margaret Rush mgr of pt's residence [phone]. Options discussed for cleaning pt's apartment. Pt will most likely need to pay for this cleaning. She will need to make monthly payments. Pt did also call a resource given by residential sales consultant Sara-she left a message with [employer] [phone]. No acceptances from subacute rehabs applied to as yet. Medication Compliance: Yes Side effects from medications: No Attending Groups: Yes Review of Systems Acute medical concerns: No Medical Review of Systems: unchanged Mental Status Exam Mental Status Exam Patient Appearance: Fatigued and Appropriate Patient Orientation: Person, Place, Time and Situation Level of Consciousness: Alert Patient Behavior: Appropriate, Talkative, Cooperative and Good Eye Contact Mood Description: Depressed and Angry Affect Description: Flat Patient Cognition Impaired: No Ability to Follow Directions: Good Speech Pattern: Spontaneous Speech Memory Description: Intact Hallucinations: None Delusions: Not Present Perceptual Disturbances: Derealization Thought Process: Intact Thought Content: positive for [place], positive for Circum[place] and positive for Suicidal Ideation Depressive Symptoms: Diff. Making Decisions, Muscle Pain, Thoughts of /Suicide and Low Self Esteem Judgement: Good Diagnostics Vital Signs (24Hr): Vital Signs - 24 hr 05/28/22 17:19 05/29/22 06:00 Temperature 98 F 96.9 F Pulse Rate 88 79 Respiratory Rate 16 18 Blood Pressure 172/78 H 170/80 H Pulse Oximetry 98 96 Oxygen Delivery Method Room Air Room Air Labs Results: 05/16/22 07:13 Labs: Laboratory Results - last 48 hr 05/29/22 10:04 COVID-19 ([facility]) Negative COVID-19 Clin Com See Note Imaging Radiology Impressions: ITS Impressions Lumbar Spine X-Ray 05/20/22 18:55 IMPRESSION: Multilevel degenerative changes. Medications Medications Current Medications Acetaminophen (Acetaminophen 325 Mg Tablet) 650 mg PO Q6H PRN PRN Reason: Headache/Pain Mild Scale (1-3) Last Admin: 05/28/22 20:15 Dose: 650 mg Al Hydroxide/Mg Hydroxide (Magnesium Hydrox/Alum Hydrox 30 Ml Oral.Susp) 30 ml PO Q6H PRN PRN Reason: Heartburn/Nausea Last Admin: 05/26/22 17:04 Dose: 30 ml Clonazepam (Clonazepam 0.5 Mg Tablet) 0.5 mg PO BID PRN PRN Reason: Anxiety Last Admin: 05/26/22 04:20 Dose: 0.5 mg Dextrose (Dextrose 50 % 25 Gm/50 Ml Syringe) 25 gm IVPUSH Q15M PRN; Protocol PRN Reason: per Hypoglycemia Standing Ord. Escitalopram Oxalate (Escitalopram Oxalate 5 Mg Tablet) 15 mg PO DAILY [facility] Last Admin: 05/29/22 09:21 Dose: 15 mg Gabapentin (Gabapentin 300 Mg Capsule) 600 mg PO BID [facility] Last Admin: 05/29/22 09:20 Dose: 600 mg Gabapentin (Gabapentin 600 Mg Tablet) 800 mg PO 1400 [facility] Last Admin: 05/29/22 14:38 Dose: 800 mg Glucose (Glucose Gel 15 Gm Gel..Gram.) 15 gm PO Q15M PRN; Protocol PRN Reason: per Hypoglycemia Standing Ord. Glyburide (Glyburide 2.5 Mg Tablet) 2.5 mg PO DAILY [facility] Last Admin: 05/29/22 09:21 Dose: 2.5 mg Hydroxyzine HCl (Hydroxyzine Hcl 25 Mg Tablet) 25 mg PO Q6H PRN PRN Reason: Anxiety Ibuprofen (Ibuprofen 400 Mg Tablet) 400 mg PO Q6H PRN PRN Reason: Pain, Mild (Pain Scale 1-3) Last Admin: 05/28/22 20:15 Dose: 400 mg Lidocaine (Lidocaine 4 % Patch Adh..Patch) 1 patch TRANSDERMA DAILY [facility]; Protocol Last Admin: 05/29/22 11:47 Dose: 1 patch Lisinopril (Lisinopril 20 Mg Tablet) 20 mg PO DAILY [facility]; Protocol Last Admin: 05/29/22 09:21 Dose: 20 mg Loperamide HCl (Loperamide Hcl 2 Mg Capsule) 4 mg PO Q6H PRN PRN Reason: loose stools Last Admin: 05/17/22 16:58 Dose: 4 mg Magnesium Hydroxide (Milk Of Magnesia 30 Ml Oral.Susp) 30 ml PO DAILY PRN PRN Reason: Constipation Multi-Ingred Cream/Lotion/Oil/Oint (Mineral Oil/Petrolatum,White 106 Gm Tube) 1 appl TOPICAL TID [facility]; Protocol Last Admin: 05/29/22 10:57 Dose: Not Given Multivitamins/Vitamin C (Multivitamin Tablet) 1 tab PO DAILY [facility] Last Admin: 05/29/22 09:21 Dose: 1 tab Risperidone (Risperidone 0.5 Mg Tablet) 0.5 mg PO BEDTIME [facility] Last Admin: 05/28/22 20:09 Dose: 0.5 mg Simethicone (Simethicone 80 Mg Tab.Chew) 80 mg PO QIDWMHS PRN PRN Reason: gas relief Last Admin: 05/29/22 09:56 Dose: 80 mg Trazodone HCl (Trazodone Hcl 50 Mg Tablet) 50 mg PO BEDTIME PRN PRN Reason: Insomnia Last Admin: 05/29/22 03:16 Dose: 50 mg Allergies Allergies Allergy/AdvReac Type Severity Reaction Status Date / Time spironolactone Allergy Unknown Unknown Verified 05/15/22 18:06 bees Allergy Unknown Unknown Uncoded 05/15/22 18:06 metformin Allergy Unknown Unknown Uncoded 05/15/22 18:06 shellfish Allergy Unknown Unknown Uncoded 05/15/22 18:06 Assessment & Plan Assessment & Plan (1) Recurrent major depression: Status: Acute Code(s): F33.9 - Major depressive disorder, recurrent, unspecified Plan 57 yo female s/p overdose on #6 Tylenol, Benadryl, Dramamine. Hx of depression, anxiety, cerebral palsy, diabetes and multiple medical issues that have been untreated. Pt reports hoarding sx, stating her apartment is too cluttered to ambulate safely. Currently, pt is experiencing pain and is using a walker, wheelchair and is struggling to ambulate. Plan: Lexapro 10 mg daily Klonopin 0.5 mg bid prn Ibuprofen prn Eucerin cream to feet Five minute checks-pt using a wheelchair Pt may require a medical bed Request for Varun DOYLE to resend medical clearance paperwork Hospitalist scheduled to see for eval-DM with metformin allergy, ambulation symptoms Referall back to PCP for GI, PRESS TENDER, Dermatology, Respiratory, Rheumatology, Neurology alliances PT consult POC 05/19: will increase gabapentin to 400 mg TID 05/20/22- [facility] Spine, Discussed referral to SNF with team. 05/22/22- Increase Gabapentin to 600 mg tid, Pain 03/18. Messages left with [facility] and [facility] for services to help pt clean her home. Sara Mantilla, pt's residential jet aircraft servicer will be away next week-she asks that we leave a message with any updates regarding pt's progress in cleaning her apartment. 05/24/2022: No changes 05/26/22: Pt feeling an increase in SI/HI due to pain, inability to care for herself and not having her home cleaned to return to. Reviewing resources with pt. Increase Lexapro to 15 mg daily Risperdal 0.5 mg HS to assist with grounding of thoughts. 05/28/22: Increase Gabapentin to 600 mg bid; 800 mg mid-day to address increase in early evening pain. I spent minutes with the patient and/or on the patient floor today, greater than?50% of which was spent counseling/coordinating care. Patient educated on: medication risk/benefits, therapeutic strategies and other Informed Consent: understands Reason for contiued inpatient stay Substantial Risk for: inability to function and rapid decompensation
--- NOTE | 2022-05-29 15:01 | HO.PSYCHPN ---
Subjective Subjective Date of Service: 05/29/22 Reason For Visit: anxiety disorder, recurrent episode, hoarding diso Subjective Notes: Conditional Voluntary Healthcare Proxy: No Guardianship: No Medical Problems Affecting Mental Status: No Interim History: Message received late in the day from Sandra [phone]. She will meet with a contractor on 06/01 to discuss pt's request. Pt should call her later in the day on Wednesday to review this discussion. Call to [facility] to see if they would be willing to go to pt's home for physical therapy assist. They decline, stating pt should be referred to [facility] who would be the referral source for their services if they do not have their own physical therapist contracted with them. Pt will need PCP appt upon discharge with [facility]. Reports sleeping well (out of medical bed) but up at 3am. Pt discussed reaching a breaking point as there are no resources to care for her. Several rehabs are refusing her secondary to her initial reports of SI. Calls with pt made to [employer]. Medication Compliance: Yes Side effects from medications: No Attending Groups: Yes Review of Systems Acute medical concerns: No Medical Review of Systems: unchanged Mental Status Exam Mental Status Exam Patient Appearance: Fatigued and Appropriate Patient Orientation: Person, Place, Time and Situation Level of Consciousness: Alert Patient Behavior: Appropriate, Talkative, Cooperative and Good Eye Contact Mood Description: Depressed and Angry Affect Description: Flat Patient Cognition Impaired: No Ability to Follow Directions: Good Speech Pattern: Spontaneous Speech Memory Description: Intact Hallucinations: None Delusions: Not Present Perceptual Disturbances: Derealization Thought Process: Intact Thought Content: positive for [place], positive for Circumstantial and positive for Suicidal Ideation Depressive Symptoms: Diff. Making Decisions, Muscle Pain, Thoughts of /Suicide and Low Self Esteem Judgement: Good Diagnostics Vital Signs (24Hr): Vital Signs - 24 hr 05/28/22 17:19 05/29/22 06:00 Temperature 98 F 96.9 F Pulse Rate 88 79 Respiratory Rate 16 18 Blood Pressure 172/78 H 170/80 H Pulse Oximetry 98 96 Oxygen Delivery Method Room Air Room Air Labs Results: 05/16/22 07:13 Labs: Laboratory Results - last 48 hr 05/29/22 10:04 COVID-19 ([facility]) Negative COVID-19 Clin Com See Note Imaging Radiology Impressions: ITS Impressions Lumbar Spine X-Ray 05/20/22 18:55 IMPRESSION: Multilevel degenerative changes. Medications Medications Current Medications Acetaminophen (Acetaminophen 325 Mg Tablet) 650 mg PO Q6H PRN PRN Reason: Headache/Pain Mild Scale (1-3) Last Admin: 05/28/22 20:15 Dose: 650 mg Al Hydroxide/Mg Hydroxide (Magnesium Hydrox/Alum Hydrox 30 Ml Oral.Susp) 30 ml PO Q6H PRN PRN Reason: Heartburn/Nausea Last Admin: 05/26/22 17:04 Dose: 30 ml Clonazepam (Clonazepam 0.5 Mg Tablet) 0.5 mg PO BID PRN PRN Reason: Anxiety Last Admin: 05/26/22 04:20 Dose: 0.5 mg Dextrose (Dextrose 50 % 25 Gm/50 Ml Syringe) 25 gm IVPUSH Q15M PRN; Protocol PRN Reason: per Hypoglycemia Standing Ord. Escitalopram Oxalate (Escitalopram Oxalate 5 Mg Tablet) 15 mg PO DAILY [facility] Last Admin: 05/29/22 09:21 Dose: 15 mg Gabapentin (Gabapentin 300 Mg Capsule) 600 mg PO BID [facility] Last Admin: 05/29/22 09:20 Dose: 600 mg Gabapentin (Gabapentin 600 Mg Tablet) 800 mg PO 1400 [facility] Last Admin: 05/29/22 14:38 Dose: 800 mg Glucose (Glucose Gel 15 Gm Gel..Gram.) 15 gm PO Q15M PRN; Protocol PRN Reason: per Hypoglycemia Standing Ord. Glyburide (Glyburide 2.5 Mg Tablet) 2.5 mg PO DAILY [facility] Last Admin: 05/29/22 09:21 Dose: 2.5 mg Hydroxyzine HCl (Hydroxyzine Hcl 25 Mg Tablet) 25 mg PO Q6H PRN PRN Reason: Anxiety Ibuprofen (Ibuprofen 400 Mg Tablet) 400 mg PO Q6H PRN PRN Reason: Pain, Mild (Pain Scale 1-3) Last Admin: 05/28/22 20:15 Dose: 400 mg Lidocaine (Lidocaine 4 % Patch Adh..Patch) 1 patch TRANSDERMA DAILY [facility]; Protocol Last Admin: 05/29/22 11:47 Dose: 1 patch Lisinopril (Lisinopril 20 Mg Tablet) 20 mg PO DAILY [facility]; Protocol Last Admin: 05/29/22 09:21 Dose: 20 mg Loperamide HCl (Loperamide Hcl 2 Mg Capsule) 4 mg PO Q6H PRN PRN Reason: loose stools Last Admin: 05/17/22 16:58 Dose: 4 mg Magnesium Hydroxide (Milk Of Magnesia 30 Ml Oral.Susp) 30 ml PO DAILY PRN PRN Reason: Constipation Multi-Ingred Cream/Lotion/Oil/Oint (Mineral Oil/Petrolatum,White 106 Gm Tube) 1 appl TOPICAL TID [facility]; Protocol Last Admin: 05/29/22 10:57 Dose: Not Given Multivitamins/Vitamin C (Multivitamin Tablet) 1 tab PO DAILY [facility] Last Admin: 05/29/22 09:21 Dose: 1 tab Risperidone (Risperidone 0.5 Mg Tablet) 0.5 mg PO BEDTIME [facility] Last Admin: 05/28/22 20:09 Dose: 0.5 mg Simethicone (Simethicone 80 Mg Tab.Chew) 80 mg PO QIDWMHS PRN PRN Reason: gas relief Last Admin: 05/29/22 09:56 Dose: 80 mg Trazodone HCl (Trazodone Hcl 50 Mg Tablet) 50 mg PO BEDTIME PRN PRN Reason: Insomnia Last Admin: 05/29/22 03:16 Dose: 50 mg Allergies Allergies Allergy/AdvReac Type Severity Reaction Status Date / Time spironolactone Allergy Unknown Unknown Verified 05/15/22 18:06 bees Allergy Unknown Unknown Uncoded 05/15/22 18:06 metformin Allergy Unknown Unknown Uncoded 05/15/22 18:06 shellfish Allergy Unknown Unknown Uncoded 05/15/22 18:06 Assessment & Plan Assessment & Plan (1) Recurrent major depression: Status: Acute Code(s): F33.9 - Major depressive disorder, recurrent, unspecified Plan 57 yo female s/p overdose on #6 Tylenol, Benadryl, Dramamine. Hx of depression, anxiety, cerebral palsy, diabetes and multiple medical issues that have been untreated. Pt reports hoarding sx, stating her apartment is too cluttered to ambulate safely. Currently, pt is experiencing pain and is using a walker, wheelchair and is struggling to ambulate. Plan: Lexapro 10 mg daily Klonopin 0.5 mg bid prn Ibuprofen prn Eucerin cream to feet Five minute checks-pt using a wheelchair Pt may require a medical bed Request for Varun DOYLE to resend medical clearance paperwork Hospitalist scheduled to see for eval-DM with metformin allergy, ambulation symptoms Referall back to PCP for GI, FIELD CAPTAIN, Dermatology, Respiratory, Rheumatology, Neurology alliances PT consult POC 05/19: will increase gabapentin to 400 mg TID 05/20/22- [facility] Sp[facility], Discussed referral to SNF with team. 05/22/22- Increase Gabapentin to 600 mg tid, Pain 03/18. Messages left with [facility] and [facility] for services to help pt clean her home. Sara Mantilla, pt's residential line service technician will be away next week-she asks that we leave a message with any updates regarding pt's progress in cleaning her apartment. 05/24/2022: No changes 05/26/22: Pt feeling an increase in SI/HI due to pain, inability to care for herself and not having her home cleaned to return to. Reviewing resources with pt. Increase Lexapro to 15 mg daily Risperdal 0.5 mg HS to assist with grounding of thoughts. 05/29/22: Continue current regime. I spent minutes with the patient and/or on the patient floor today, greater than?50% of which was spent counseling/coordinating care. Patient educated on: other Informed Consent: understands Reason for contiued inpatient stay Substantial Risk for: harm to self, inability to function and rapid decompensation
[2022-05-29 18:45] VITALS: BP 174/81; PULSE 80; TEMP 36.4
[2022-05-29] MEDS: risperiDONE 0.5 MG TABLET PO (20:26)
[2022-05-29] MEDS: Loperamide HCl 2 MG CAPSULE 4 MG PO (20:26)
[2022-05-30 08:30] VITALS: BP 158/85; PULSE 90; TEMP 36.6
[2022-05-30] MEDS: Multivitamin TABLET 1 TAB PO (09:09)
[2022-05-30] MEDS: Gabapentin 300 MG CAPSULE 600 MG PO (09:10)
[2022-05-30] MEDS: Escitalopram Oxalate 5 MG TABLET 15 MG PO (09:10)
[2022-05-30] MEDS: glyBURIDE 2.5 MG TABLET PO (09:10)
[2022-05-30] MEDS: Lidocaine 4 % Patch ADH..PATCH 1 PATCH TRANSDERMA (09:11)
[2022-05-30] MEDS: lisinopriL 20 MG TABLET PO (09:13)
--- NOTE | 2022-05-30 09:46 | HO.PSYCHPN ---
Subjective Subjective Date of Service: 05/30/22 Reason For Visit: anxiety disorder, recurrent episode, hoarding diso Subjective Notes: Matias Warning and Conditional Voluntary Interim History: Spoke with pt's team. Per staff, she needs her house cleaned. Met with pt. Says he is doing okay. Says she has had moments where eleazar fallen to pieces a little bit but that she tries?to do it as quietly as humanly possible. At night she sometimes goes to bed and cries. Reviewed the referrals that have been made by her primary team thus far. Pt wants PT. Discussed her hoarding, says she has to kick things aside to make a path wide enough for her walker. Would like her pain to be better managed. Says the gabapentin has helped but I still cant stand still for more than 2-3 seconds. Says the lidocaine patch doesnt stick to her skin. She does feel that walking has become easier on the medication but standing still is still a no go. Denies SI/SIB. Feels safe. Does get some sleep but wants a higher dose of trazodone. Medication Compliance: Yes Side effects from medications: No Attending Groups: Yes Review of Systems Acute medical concerns: No Medical Review of Systems: unchanged Mental Status Exam Mental Status Exam Narrative: Patient Appearance: Fatigued and Appropriate Patient Orientation: Person, Place, Time and Situation Level of Consciousness: Alert Patient Behavior: Appropriate, Talkative, Cooperative and Good Eye Contact Mood Description: Depressed and Angry Affect Description: Flat Patient Cognition Impaired: No Ability to Follow Directions: Good Speech Pattern: Spontaneous Speech Memory Description: Intact Hallucinations: None Delusions: Not Present Perceptual Disturbances: Derealization Thought Process: Intact Thought Content: positive for [place], positive for Circumstantial and positive for Suicidal Ideation Depressive Symptoms: Diff. Making Decisions, Muscle Pain, Thoughts of /Suicide and Low Self Esteem Judgement: Good Diagnostics Vital Signs (24Hr): Vital Signs - 24 hr 05/29/22 18:45 Temperature 97.5 F Pulse Rate 80 Blood Pressure 174/81 H Labs Results: 05/16/22 07:13 Labs: Laboratory Results - last 48 hr 05/29/22 10:04 COVID-19 ([facility]) Negative COVID-19 Clin Com See Note Imaging Radiology Impressions: ITS Impressions Lumbar Spine X-Ray 05/20/22 18:55 IMPRESSION: Multilevel degenerative changes. Medications Medications Current Medications Acetaminophen (Acetaminophen 325 Mg Tablet) 650 mg PO Q6H PRN PRN Reason: Headache/Pain Mild Scale (1-3) Last Admin: 05/28/22 20:15 Dose: 650 mg Al Hydroxide/Mg Hydroxide (Magnesium Hydrox/Alum Hydrox 30 Ml Oral.Susp) 30 ml PO Q6H PRN PRN Reason: Heartburn/Nausea Last Admin: 05/26/22 17:04 Dose: 30 ml Clonazepam (Clonazepam 0.5 Mg Tablet) 0.5 mg PO BID PRN PRN Reason: Anxiety Last Admin: 05/26/22 04:20 Dose: 0.5 mg Dextrose (Dextrose 50 % 25 Gm/50 Ml Syringe) 25 gm IVPUSH Q15M PRN; Protocol PRN Reason: per Hypoglycemia Standing Ord. Escitalopram Oxalate (Escitalopram Oxalate 5 Mg Tablet) 15 mg PO DAILY [facility] Last Admin: 05/30/22 09:10 Dose: 15 mg Gabapentin (Gabapentin 300 Mg Capsule) 600 mg PO BID [facility] Last Admin: 05/30/22 09:10 Dose: 600 mg Gabapentin (Gabapentin 600 Mg Tablet) 800 mg PO 1400 [facility] Last Admin: 05/29/22 14:38 Dose: 800 mg Glucose (Glucose Gel 15 Gm Gel..Gram.) 15 gm PO Q15M PRN; Protocol PRN Reason: per Hypoglycemia Standing Ord. Glyburide (Glyburide 2.5 Mg Tablet) 2.5 mg PO DAILY [facility] Last Admin: 05/30/22 09:10 Dose: 2.5 mg Hydroxyzine HCl (Hydroxyzine Hcl 25 Mg Tablet) 25 mg PO Q6H PRN PRN Reason: Anxiety Ibuprofen (Ibuprofen 400 Mg Tablet) 400 mg PO Q6H PRN PRN Reason: Pain, Mild (Pain Scale 1-3) Last Admin: 05/28/22 20:15 Dose: 400 mg Lidocaine (Lidocaine 4 % Patch Adh..Patch) 1 patch TRANSDERMA DAILY [facility]; Protocol Last Admin: 05/30/22 09:11 Dose: 1 patch Lisinopril (Lisinopril 20 Mg Tablet) 20 mg PO DAILY [facility]; Protocol Last Admin: 05/30/22 09:13 Dose: 20 mg Loperamide HCl (Loperamide Hcl 2 Mg Capsule) 4 mg PO Q6H PRN PRN Reason: loose stools Last Admin: 05/29/22 20:26 Dose: 4 mg Magnesium Hydroxide (Milk Of Magnesia 30 Ml Oral.Susp) 30 ml PO DAILY PRN PRN Reason: Constipation Multi-Ingred Cream/Lotion/Oil/Oint (Mineral Oil/Petrolatum,White 106 Gm Tube) 1 appl TOPICAL TID [facility]; Protocol Last Admin: 05/29/22 21:01 Dose: Not Given Multivitamins/Vitamin C (Multivitamin Tablet) 1 tab PO DAILY [facility] Last Admin: 05/30/22 09:09 Dose: 1 tab Risperidone (Risperidone 0.5 Mg Tablet) 0.5 mg PO BEDTIME [facility] Last Admin: 05/29/22 20:26 Dose: 0.5 mg Simethicone (Simethicone 80 Mg Tab.Chew) 80 mg PO QIDWMHS PRN PRN Reason: gas relief Last Admin: 05/29/22 09:56 Dose: 80 mg Trazodone HCl (Trazodone Hcl 50 Mg Tablet) 50 mg PO BEDTIME PRN PRN Reason: Insomnia Last Admin: 05/29/22 03:16 Dose: 50 mg Allergies Allergies Allergy/AdvReac Type Severity Reaction Status Date / Time spironolactone Allergy Unknown Unknown Verified 05/15/22 18:06 bees Allergy Unknown Unknown Uncoded 05/15/22 18:06 metformin Allergy Unknown Unknown Uncoded 05/15/22 18:06 shellfish Allergy Unknown Unknown Uncoded 05/15/22 18:06 Assessment & Plan Assessment & Plan (1) Recurrent major depression: Status: Acute Code(s): F33.9 - Major depressive disorder, recurrent, unspecified Plan 57 yo female s/p overdose on #6 Tylenol, Benadryl, Dramamine. Hx of depression, anxiety, cerebral palsy, diabetes and multiple medical issues that have been untreated. Pt reports hoarding sx, stating her apartment is too cluttered to ambulate safely. Currently, pt is experiencing pain and is using a walker, wheelchair and is struggling to ambulate. Plan: Lexapro 10 mg daily Klonopin 0.5 mg bid prn Ibuprofen prn Eucerin cream to feet Five minute checks-pt using a wheelchair Pt may require a medical bed Request for Varun DOYLE to resend medical clearance paperwork Hospitalist scheduled to see for eval-DM with metformin allergy, ambulation symptoms Referall back to PCP for GI, INSIDE TRUCKER, Dermatology, Respiratory, Rheumatology, Neurology alliances PT consult POC 05/19: will increase gabapentin to 400 mg TID 05/20/22- [facility] Spine, Discussed referral to SNF with team. 05/22/22- Increase Gabapentin to 600 mg tid, Pain 03/18. Messages left with [facility] and [facility] for services to help pt clean her home. Sara Mantilla, pt's residential auto service advisor will be away next week-she asks that we leave a message with any updates regarding pt's progress in cleaning her apartment. 05/24/2022: No changes 05/26/22: Pt feeling an increase in SI/HI due to pain, inability to care for herself and not having her home cleaned to return to. Reviewing resources with pt. Increase Lexapro to 15 mg daily Risperdal 0.5 mg HS to assist with grounding of thoughts. 05/30/22: Will increase gabapentin to 800 mg TID and trazodone to 100 mg QHS. I spent minutes with the patient and/or on the patient floor today, greater than?50% of which was spent counseling/coordinating care. Patient educated on: diagnosis, medication risk/benefits and therapeutic strategies Reason for contiued inpatient stay Substantial Risk for: med/psych decompensation
[2022-05-30] MEDS: Mineral Oil/Petrolatum,White 106 GM Tube 1 APPL TOPICAL ×2 (14:34→14:46)
[2022-05-30] MEDS: Gabapentin 600 MG TABLET 800 MG PO (14:37)
[2022-05-30 17:54] VITALS: BP 168/77; PULSE 80; RESP 16; TEMP 36.3; O2SAT 98
[2022-05-30] MEDS: risperiDONE 0.5 MG TABLET PO (19:52)
[2022-05-30] MEDS: Gabapentin 400 MG CAPSULE 800 MG PO (19:52)
[2022-05-30] MEDS: traZODone HCL 100 MG TABLET PO (20:27)
[2022-05-31 06:00] VITALS: BP 164/78; PULSE 85; RESP 18; TEMP 36.6; O2SAT 98
[2022-05-31] MEDS: Multivitamin TABLET 1 TAB PO (09:06)
[2022-05-31] MEDS: Escitalopram Oxalate 5 MG TABLET 15 MG PO (09:06)
[2022-05-31] MEDS: lisinopriL 20 MG TABLET PO (09:07)
[2022-05-31] MEDS: Gabapentin 400 MG CAPSULE 800 MG PO ×2 (09:07→20:14)
[2022-05-31] MEDS: Lidocaine 4 % Patch ADH..PATCH 1 PATCH TRANSDERMA (09:07)
[2022-05-31] MEDS: Mineral Oil/Petrolatum,White 106 GM Tube 1 APPL TOPICAL ×3 (09:07→20:14)
[2022-05-31] MEDS: glyBURIDE 2.5 MG TABLET PO (09:07)
--- NOTE | 2022-05-31 13:00 | HO.PSYCHPN ---
Subjective Subjective Date of Service: 05/31/22 Reason For Visit: anxiety disorder, recurrent episode, hoarding diso Subjective Notes: Matias Warning and Conditional Voluntary Interim History: Met with pt and discussed with team. Pt says she is feeling better, was having diarrhea but given loperamide. Feels pretty good. Says I did get sleep last night, the increase in trazodone helped. Didnt notice increase in gabapentin helping yet. Medication Compliance: Yes Side effects from medications: No Attending Groups: No Review of Systems Acute medical concerns: No Medical Review of Systems: unchanged Mental Status Exam Mental Status Exam Narrative: Patient Appearance: Fatigued and Appropriate Patient Orientation: Person, Place, Time and Situation Level of Consciousness: Alert Patient Behavior: Appropriate, Talkative, Cooperative and Good Eye Contact Mood Description: Depressed and Angry Affect Description: Flat Patient Cognition Impaired: No Ability to Follow Directions: Good Speech Pattern: Spontaneous Speech Memory Description: Intact Hallucinations: None Delusions: Not Present Perceptual Disturbances: Derealization Thought Process: Intact Thought Content: positive for [place], positive for Circumstantial and positive for Suicidal Ideation Depressive Symptoms: Diff. Making Decisions, Muscle Pain, Thoughts of /Suicide and Low Self Esteem Judgement: Good Diagnostics Vital Signs (24Hr): Vital Signs - 24 hr 05/30/22 17:54 05/31/22 06:00 Temperature 97.3 F 98 F Pulse Rate 80 85 Respiratory Rate 16 18 Blood Pressure 168/77 H 164/78 H Pulse Oximetry 98 98 Oxygen Delivery Method Room Air Room Air Labs Results: 05/16/22 07:13 Imaging Radiology Impressions: ITS Impressions Lumbar Spine X-Ray 05/20/22 18:55 IMPRESSION: Multilevel degenerative changes. Medications Medications Current Medications Acetaminophen (Acetaminophen 325 Mg Tablet) 650 mg PO Q6H PRN PRN Reason: Headache/Pain Mild Scale (1-3) Last Admin: 05/28/22 20:15 Dose: 650 mg Al Hydroxide/Mg Hydroxide (Magnesium Hydrox/Alum Hydrox 30 Ml Oral.Susp) 30 ml PO Q6H PRN PRN Reason: Heartburn/Nausea Last Admin: 05/26/22 17:04 Dose: 30 ml Clonazepam (Clonazepam 0.5 Mg Tablet) 0.5 mg PO BID PRN PRN Reason: Anxiety Last Admin: 05/26/22 04:20 Dose: 0.5 mg Dextrose (Dextrose 50 % 25 Gm/50 Ml Syringe) 25 gm IVPUSH Q15M PRN; Protocol PRN Reason: per Hypoglycemia Standing Ord. Escitalopram Oxalate (Escitalopram Oxalate 5 Mg Tablet) 15 mg PO DAILY [facility] Last Admin: 05/31/22 09:06 Dose: 15 mg Gabapentin (Gabapentin 600 Mg Tablet) 800 mg PO 1400 [facility] Last Admin: 05/30/22 14:37 Dose: 800 mg Gabapentin (Gabapentin 400 Mg Capsule) 800 mg PO BID [facility] Last Admin: 05/31/22 09:07 Dose: 800 mg Glucose (Glucose Gel 15 Gm Gel..Gram.) 15 gm PO Q15M PRN; Protocol PRN Reason: per Hypoglycemia Standing Ord. Glyburide (Glyburide 2.5 Mg Tablet) 2.5 mg PO DAILY [facility] Last Admin: 05/31/22 09:07 Dose: 2.5 mg Hydroxyzine HCl (Hydroxyzine Hcl 25 Mg Tablet) 25 mg PO Q6H PRN PRN Reason: Anxiety Ibuprofen (Ibuprofen 400 Mg Tablet) 400 mg PO Q6H PRN PRN Reason: Pain, Mild (Pain Scale 1-3) Last Admin: 05/28/22 20:15 Dose: 400 mg Lidocaine (Lidocaine 4 % Patch Adh..Patch) 1 patch TRANSDERMA DAILY [facility]; Protocol Last Admin: 05/31/22 09:07 Dose: 1 patch Lisinopril (Lisinopril 20 Mg Tablet) 20 mg PO DAILY [facility]; Protocol Last Admin: 05/31/22 09:07 Dose: 20 mg Loperamide HCl (Loperamide Hcl 2 Mg Capsule) 4 mg PO Q6H PRN PRN Reason: loose stools Last Admin: 05/29/22 20:26 Dose: 4 mg Magnesium Hydroxide (Milk Of Magnesia 30 Ml Oral.Susp) 30 ml PO DAILY PRN PRN Reason: Constipation Multi-Ingred Cream/Lotion/Oil/Oint (Mineral Oil/Petrolatum,White 106 Gm Tube) 1 appl TOPICAL TID [facility]; Protocol Last Admin: 05/31/22 09:07 Dose: 1 appl Multivitamins/Vitamin C (Multivitamin Tablet) 1 tab PO DAILY [facility] Last Admin: 05/31/22 09:06 Dose: 1 tab Risperidone (Risperidone 0.5 Mg Tablet) 0.5 mg PO BEDTIME [facility] Last Admin: 05/30/22 19:52 Dose: 0.5 mg Simethicone (Simethicone 80 Mg Tab.Chew) 80 mg PO QIDWMHS PRN PRN Reason: gas relief Last Admin: 05/29/22 09:56 Dose: 80 mg Trazodone HCl (Trazodone Hcl 100 Mg Tablet) 100 mg PO BEDTIME PRN PRN Reason: Insomnia Last Admin: 05/30/22 20:27 Dose: 100 mg Allergies Allergies Allergy/AdvReac Type Severity Reaction Status Date / Time spironolactone Allergy Unknown Unknown Verified 05/15/22 18:06 bees Allergy Unknown Unknown Uncoded 05/15/22 18:06 metformin Allergy Unknown Unknown Uncoded 05/15/22 18:06 shellfish Allergy Unknown Unknown Uncoded 05/15/22 18:06 Assessment & Plan Assessment & Plan (1) Recurrent major depression: Status: Acute Code(s): F33.9 - Major depressive disorder, recurrent, unspecified Plan 57 yo female s/p overdose on #6 Tylenol, Benadryl, Dramamine. Hx of depression, anxiety, cerebral palsy, diabetes and multiple medical issues that have been untreated. Pt reports hoarding sx, stating her apartment is too cluttered to ambulate safely. Currently, pt is experiencing pain and is using a walker, wheelchair and is struggling to ambulate. Plan: Lexapro 10 mg daily Klonopin 0.5 mg bid prn Ibuprofen prn Eucerin cream to feet Five minute checks-pt using a wheelchair Pt may require a medical bed Request for Varun DOYLE to resend medical clearance paperwork Hospitalist scheduled to see for eval-DM with metformin allergy, ambulation symptoms Referall back to PCP for GI, [employer]OTYPE MECHANIC, Dermatology, Respiratory, Rheumatology, Neurology alliances PT consult POC 05/19: will increase gabapentin to 400 mg TID 05/20/22- [facility] Sp[facility], Discussed referral to SNF with team. 05/22/22- Increase Gabapentin to 600 mg tid, Pain 03/18. Messages left with [facility] and [facility] for services to help pt clean her home. Sara Mantilla, pt's residential industrial gas service helper will be away next week-she asks that we leave a message with any updates regarding pt's progress in cleaning her apartment. 05/24/2022: No changes 05/26/22: Pt feeling an increase in SI/HI due to pain, inability to care for herself and not having her home cleaned to return to. Reviewing resources with pt. Increase Lexapro to 15 mg daily Risperdal 0.5 mg HS to assist with grounding of thoughts. 05/30/22: Will increase gabapentin to 800 mg TID and trazodone to 100 mg QHS. 05/31/22: no medication changes I spent minutes with the patient and/or on the patient floor today, greater than?50% of which was spent counseling/coordinating care. Patient educated on: medication risk/benefits and therapeutic strategies Reason for contiued inpatient stay Substantial Risk for: med/psych decompensation
[2022-05-31] MEDS: Gabapentin 600 MG TABLET 800 MG PO (14:56)
[2022-05-31] MEDS: Loperamide HCl 2 MG CAPSULE 4 MG PO (16:46)
[2022-05-31 18:00] VITALS: BP 146/79; PULSE 78; RESP 16; TEMP 36.6; O2SAT 85
[2022-05-31] MEDS: risperiDONE 0.5 MG TABLET PO (20:14)
[2022-05-31] MEDS: traZODone HCL 100 MG TABLET PO (20:28)
[2022-06-01 06:00] VITALS: BP 176/84; PULSE 78; RESP 16; TEMP 37.1; O2SAT 96
[2022-06-01] MEDS: lisinopriL 20 MG TABLET PO (08:56)
[2022-06-01] MEDS: glyBURIDE 2.5 MG TABLET PO (08:56)
[2022-06-01] MEDS: Gabapentin 400 MG CAPSULE 800 MG PO (08:56)
[2022-06-01] MEDS: Escitalopram Oxalate 5 MG TABLET 15 MG PO (08:56)
[2022-06-01] MEDS: Multivitamin TABLET 1 TAB PO (08:56)
[2022-06-01] MEDS: Lidocaine 4 % Patch ADH..PATCH 1 PATCH TRANSDERMA (08:57)
[2022-06-01 11:03] VITALS: BP 176/84; PULSE 78; O2SAT 96
--- NOTE | 2022-06-01 13:02 | P.PNPSI_ITS ---
Subjective Subjective Date of Service: 06/01/22 Reason For Visit: anxiety disorder, recurrent episode, hoarding diso Interim History: met with patient; she denies any SI/HI/AVH. Patient says her mood is good and depression resolved; feels ready to go home. Reviewed medications; patient has some already and caption writer agreed to refill others. Mental Status Exam Mental Status Exam Narrative: Patient Appearance: Appropriate; dressed in casual cloths Patient Orientation: Person, Place, Time and Situation Level of Consciousness: Alert Patient Behavior: Appropriate, calm, Cooperative and Good Eye Contact Mood Description: good Affect Description: congruent, pleasant Patient Cognition Impaired: No Ability to Follow Directions: Good Speech Pattern: Spontaneous Speech Memory Description: Intact Hallucinations: None Delusions: Not Present Perceptual Disturbances: None Thought Process: Intact Thought Content: on discharge; no SI, no HI; Judgment/insight: Good Diagnostics Vital Signs (24Hr): Vital Signs - 24 hr 05/31/22 18:00 06/01/22 06:00 06/01/22 11:03 Temperature 97.8 F 98.8 F Pulse Rate 78 78 78 Respiratory Rate 16 16 Blood Pressure 146/79 H 176/84 H 176/84 H Pulse Oximetry 85 L 96 96 Oxygen Delivery Method Room Air Room Air Labs Results: 05/16/22 07:13 Imaging Radiology Impressions: ITS Impressions Lumbar Spine X-Ray 05/20/22 18:55 IMPRESSION: Multilevel degenerative changes. Medications Medications Current Medications Acetaminophen (Acetaminophen 325 Mg Tablet) 650 mg PO Q6H PRN PRN Reason: Headache/Pain Mild Scale (1-3) Last Admin: 05/28/22 20:15 Dose: 650 mg Al Hydroxide/Mg Hydroxide (Magnesium Hydrox/Alum Hydrox 30 Ml Oral.Susp) 30 ml PO Q6H PRN PRN Reason: Heartburn/Nausea Last Admin: 05/26/22 17:04 Dose: 30 ml Clonazepam (Clonazepam 0.5 Mg Tablet) 0.5 mg PO BID PRN PRN Reason: Anxiety Last Admin: 05/26/22 04:20 Dose: 0.5 mg Dextrose (Dextrose 50 % 25 Gm/50 Ml Syringe) 25 gm IVPUSH Q15M PRN; Protocol PRN Reason: per Hypoglycemia Standing Ord. Escitalopram Oxalate (Escitalopram Oxalate 5 Mg Tablet) 15 mg PO DAILY [facility] Last Admin: 06/01/22 08:56 Dose: 15 mg Gabapentin (Gabapentin 600 Mg Tablet) 800 mg PO 1400 [facility] Last Admin: 05/31/22 14:56 Dose: 800 mg Gabapentin (Gabapentin 400 Mg Capsule) 800 mg PO BID [facility] Last Admin: 06/01/22 08:56 Dose: 800 mg Glucose (Glucose Gel 15 Gm Gel..Gram.) 15 gm PO Q15M PRN; Protocol PRN Reason: per Hypoglycemia Standing Ord. Glyburide (Glyburide 2.5 Mg Tablet) 2.5 mg PO DAILY [facility] Last Admin: 06/01/22 08:56 Dose: 2.5 mg Hydroxyzine HCl (Hydroxyzine Hcl 25 Mg Tablet) 25 mg PO Q6H PRN PRN Reason: Anxiety Ibuprofen (Ibuprofen 400 Mg Tablet) 400 mg PO Q6H PRN PRN Reason: Pain, Mild (Pain Scale 1-3) Last Admin: 05/28/22 20:15 Dose: 400 mg Lidocaine (Lidocaine 4 % Patch Adh..Patch) 1 patch TRANSDERMA DAILY [facility]; Protocol Last Admin: 06/01/22 08:57 Dose: 1 patch Lisinopril (Lisinopril 20 Mg Tablet) 20 mg PO DAILY [facility]; Protocol Last Admin: 06/01/22 08:56 Dose: 20 mg Loperamide HCl (Loperamide Hcl 2 Mg Capsule) 4 mg PO Q6H PRN PRN Reason: loose stools Last Admin: 05/29/22 20:26 Dose: 4 mg Magnesium Hydroxide (Milk Of Magnesia 30 Ml Oral.Susp) 30 ml PO DAILY PRN PRN Reason: Constipation Multi-Ingred Cream/Lotion/Oil/Oint (Mineral Oil/Petrolatum,White 106 Gm Tube) 1 appl TOPICAL TID [facility]; Protocol Last Admin: 05/31/22 20:14 Dose: 1 appl Multivitamins/Vitamin C (Multivitamin Tablet) 1 tab PO DAILY [facility] Last Admin: 06/01/22 08:56 Dose: 1 tab Risperidone (Risperidone 0.5 Mg Tablet) 0.5 mg PO BEDTIME [facility] Last Admin: 05/31/22 20:14 Dose: 0.5 mg Simethicone (Simethicone 80 Mg Tab.Chew) 80 mg PO QIDWMHS PRN PRN Reason: gas relief Last Admin: 05/29/22 09:56 Dose: 80 mg Trazodone HCl (Trazodone Hcl 100 Mg Tablet) 100 mg PO BEDTIME PRN PRN Reason: Insomnia Last Admin: 05/31/22 20:28 Dose: 100 mg Allergies Allergies Allergy/AdvReac Type Severity Reaction Status Date / Time spironolactone Allergy Unknown Unknown Verified 05/15/22 18:06 bees Allergy Unknown Unknown Uncoded 05/15/22 18:06 metformin Allergy Unknown Unknown Uncoded 05/15/22 18:06 shellfish Allergy Unknown Unknown Uncoded 05/15/22 18:06 Assessment & Plan Assessment & Plan (1) Recurrent major depression: Status: Acute Code(s): F33.9 - Major depressive disorder, recurrent, unspecified Plan 57 yo female s/p overdose on #6 Tylenol, Benadryl, Dramamine. Hx of depression, anxiety, cerebral palsy, diabetes and multiple medical issues that have been untreated. Pt reports hoarding sx, stating her apartment is too cluttered to ambulate safely. Currently, pt is experiencing pain and is using a walker, wheelchair and is struggling to ambulate. Plan: Lexapro 10 mg daily Klonopin 0.5 mg bid prn Ibuprofen prn Eucerin cream to feet Five minute checks-pt using a wheelchair Pt may require a medical bed Request for Varun DOYLE to resend medical clearance paperwork Hospitalist scheduled to see for eval-DM with metformin allergy, ambulation symptoms Referall back to PCP for GI, [employer] INTE[employer]ITY CONSULTANT, Dermatology, Respiratory, Rheumatology, Neurology alliances PT consult POC 05/19: will increase gabapentin to 400 mg TID 05/20/22- [facility] Spine, Discussed referral to SNF with team. 05/22/22- Increase Gabapentin to 600 mg tid, Pain 03/18. Messages left with [facility] and [facility] for services to help pt clean her home. Sara Mantilla, pt's residential child and family services worker will be away next week-she asks that we leave a message with any updates regarding pt's progress in cleaning her apartment. 05/24/2022: No changes 05/26/22: Pt feeling an increase in SI/HI due to pain, inability to care for herself and not having her home cleaned to return to. Reviewing resources with pt. Increase Lexapro to 15 mg daily Risperdal 0.5 mg HS to assist with grunding of thoughts. 05/30/22: Will increase gabapentin to 800 mg TID and trazodone to 100 mg QHS. 05/31/22: no medication changes 06/01. pt reports depression gone; no SI/HI; feels ready for discharge as planned for today by primary team. DC home I spent minutes with the patient and/or on the patient floor today, greater than?50% of which was spent counseling/coordinating care. Patient educated on: diagnosis and medication risk/benefits Informed Consent: understands Reason for contiued inpatient stay Substantial Risk for: stable for discharge
[2022-06-01] MEDS: Acetaminophen 325 MG TABLET 650 MG PO (13:58)
[2022-06-01] MEDS: clonazePAM 0.5 MG TABLET PO (13:59)
[2022-06-01] MEDS: Gabapentin 600 MG TABLET 800 MG PO (13:59)
--- NOTE | 2022-07-05 18:42 | P.DS_ITS ---
DS: Providers Provider Date of Service: 06/01/22 Date of admission: 05/15/22 17:53 Date of discharge: 06/01/22 Primary care physician: Hay Smith MD Admitting clinician: Christal Melton Attending physician on admission: Rahat Hudson Consults: 05/16/22 15:32 Consult to Hospitalist Routine Consulting Provider: Hospitalist Reason For Exam: [facility] transfer 05/17/22 13:54 Consult to Hospitalist Routine Consulting Provider: Hospitalist Reason For Exam: [facility] transfer Attending physician on discharge: Enio Pritchett Discharging clinician: Enio Pritchett DS: Diagnosis Discharge Diagnosis (1) Recurrent major depression: Status: Acute DS: Medications Discharge Medications Home Medications: Previous Rx's Medication Instructions Recorded clonazepam 0.5 mg tablet 0.5 mg PO BID PRN Anxiety 15 days 06/01/22 #15 tabs escitalopram oxalate 5 mg tablet 15 mg PO DAILY 30 days #90 tabs 06/01/22 gabapentin 800 mg tablet 800 mg PO TID 30 days #90 tabs 06/01/22 glyburide 2.5 mg tablet 2.5 mg PO DAILY 30 days #30 tabs 06/01/22 lisinopril 20 mg tablet 20 mg PO DAILY 30 days #30 tabs 06/01/22 loperamide 2 mg capsule 2 mg PO Q6H PRN loose stools 30 06/01/22 days #0 caps multivitamin (Daily-Dante tablet) 1 tab PO DAILY 30 days #30 tabs 06/01/22 risperidone 0.5 mg tablet 0.5 mg PO BEDTIME 30 days #30 tabs 06/01/22 trazodone 100 mg tablet See Rx Instructions .Route 06/01/22 .COMPLEX PRN Insomnia #0 tabs triamterene 37.5 1 cap PO DAILY 30 days #30 caps 06/01/22 mg-hydrochlorothiazide 25 mg capsule Mental Status Exam Mental Status Exam Narrative: Patient Appearance: Appropriate; dressed in casual cloths Patient Orientation: Person, Place, Time and Situation Level of Consciousness: Alert Patient Behavior: Appropriate, calm, Cooperative and Good Eye Contact Mood Description: good Affect Description: congruent, pleasant Patient Cognition Impaired: No Ability to Follow Directions: Good Speech Pattern: Spontaneous Speech Memory Description: Intact Hallucinations: None Delusions: Not Present Perceptual Disturbances: None Thought Process: Intact Thought Content: on discharge; no SI, no HI; Judgment/insight: Good Data Imaging Diagnostic Imaging Impressions Lumbar Spine X-Ray 05/20/22 18:55 IMPRESSION: Multilevel degenerative changes. DS: Summary Hospital Course Hospital Course: Admission to adult psychiatry for exacerbation of symptoms of depression, anxiety, physical symptoms of deconditioning, hoarding symptoms and not having provider contact during the pandemic. Pt overdosed as a result of these stressors. Lexapro was initiated, along with klonopin, gabapentin, risperdal and trazodone. Jessenia worked on balance and coordination and physical strengthening during the admission as well. She was denied rehab admission due to not meeting criteria. Her apartment managment and community supports will assist her in working with her hoarding to help her make her living environment better able to meet her needs. Out patient referrals with appointments were made to reconnect her with her community. Time spent discussing smoking cessation with patient: 3 to 10 minutes Status at Discharge Functional status at discharge: uses cane/walker Overall status at discharge: patient is progressing back to baseline Time Spent with Patient Time attestation: Total time spent providing and/or coordinating discharge services: 40 Time spent: Greater than 30 minutes Discharge Plan Discharge Anticipated Discharge Date/Time: 06/01/22 14:00 Patient Disposition: Home, Self-Care Discharge Diagnosis: MDD, recurrent, severe PTSD Referrals: Piedad Stephenson [Other] - 06/10/22 1:00 pm (Initial Diagnostic evaluation for therapy and psychiatry services Appointment is by tele-health. Please Check your email for a link to the appointment. Zoom Appointment.) [facility] [Other] - 1 Week (A ref to [facility] has been made on your behalf- They are still reviewing the case to determine acceptance. Await their call. fax- [phone] ) Hay Smith MD [Primary Care Provider] - 1 Week (PCP's office will call pt directly with a follow up appt ) Discharge Medications: New lisinopril 20 mg Tablet 20 mg PO DAILY 30 Days Qty: 30 0RF Protocol: Hold for SBP< HOLD for SBP < : 90 clonazepam 0.5 mg Tablet 0.5 mg PO BID PRN (Reason: Anxiety) 15 Days Qty: 15 1RF escitalopram oxalate 5 mg Tablet 15 mg PO DAILY 30 Days Qty: 90 0RF gabapentin 800 mg tablet 800 mg PO TID 30 Days Qty: 90 0RF risperidone 0.5 mg Tablet 0.5 mg PO BEDTIME 30 Days Qty: 30 0RF trazodone 100 mg Tablet See Rx Instructions .ROUTE .COMPLEX PRN (Reason: Insomnia) Qty: 0 0RF Rx Instructions: take 1/2 to 1 tab as needed for insomnia loperamide 2 mg Capsule 2 mg PO Q6H PRN (Reason: loose stools) 30 Days Qty: 0 0RF glyburide 2.5 mg Tablet 2.5 mg PO DAILY 30 Days Qty: 30 0RF multivitamin [Daily-Dante] Tablet 1 tab PO DAILY 30 Days Qty: 30 0RF triamterene-hydrochlorothiazid 37.5-25 mg capsule 1 cap PO DAILY 30 Days Qty: 30 0RF Discharge Orders: Discharge Order (Routine); Ordered 06/01/22 Ordered By: Enio Pritchett Diet: Regular diet Activity on Discharge: As tolerated Stand Alone Forms: Patient Portal Discharge page, Community Support Care Plan Goals: Maintain mood and safe behaviors Take medications as prescribed Practice coping skills Continue with outpatient providers and reach out to them as needed Health Concerns: Mood stability and behaviors Hypertension Cerebral Palsy Plan of Treatment: Follow up with your PCP, psychiatric provider and other outpatient providers regarding above concerns Take medications as prescribed Assessment: Risk assessment at time of discharge:? Patient was interviewed prior to discharge and found to be fully oriented and without any SI or HI. Patient has insight and demonstrates good judgment in terms of wanting to pursue treatment. Patient is not in imminent risk of harm to self or others and has a safety plan that includes presenting to the closest ER or calling 911 if feeling unsafe.? Patient has been observed closely by nursing and unit staff throughout admission; patient has not engaged in any behaviors that suggest dangerousness to self or others and has demonstrated appropriate behaviors and impulse control Discharge Date/Time: 06/01/22 15:02
== END 2022-06-01 15:02 | disposition home or self-care (01) | DRG 882 ==
PROVIDERS: Registered Nurse; Admitting Provider Psychiatry & Neurology Psychiatry; PCP Family Medicine; Visit Provider Clinical Nurse Specialist Psychiatric/Mental Health, Adult
DX: F43.10 Post-traumatic stress disorder, unspecified (principal); F33.9 Major depressive disorder, recurrent, unspecified; G80.9 Cerebral palsy, unspecified; F42.3 Hoarding disorder; I10 Essential (primary) hypertension; E11.9 Type 2 diabetes mellitus without complications; M54.30 Sciatica, unspecified side; Z20.822 Contact with and (suspected) exposure to COVID-19; Z23 Encounter for immunization; Z91.51 Personal history of suicidal behavior; Z91.013 Allergy to seafood; Z88.8 Allergy status to other drugs, medicaments and biological substances; Z79.84 Long term (current) use of oral hypoglycemic drugs; Z79.899 Other long term (current) drug therapy
CPT/HCPCS: 36415; 72100; 80053; 80061; 82607; 82746; 82947; 83036; 83735; 84439; 84443; 87635; 90686; 90792; 97110; 97116; 97161; 97530